=== PATIENT | male | born 1940 | race Caucasian/White ===

== ENCOUNTER → 2016-08-13 | Outpatient (CLI) | payer MEDICARE, OTHER ==
[2016-08-13 10:12] LABS: ABSOLUTE BASOPHILS # (AUTO) 0.1 10^3/uL (0.0-0.2); ABSOLUTE EOSINOPHILS # (AUTO) 0.2 10^3/uL (0.0-0.6); ABSOLUTE LYMPHOCYTES (AUTO) 0.9 10^3/uL (0.5-4.7); ABSOLUTE MONOCYTES (AUTO) 0.5 10^3/uL (0.1-1.4); ABSOLUTE NEUT (AUTO) 5.7 10^3/uL (1.7-8.2); BASOPHILS % (AUTO) 0.9 % (0-2); EOSINOPHILS % (AUTO) 3.3 % (0-6); HEMATOCRIT 34.3 % (37.9-51.0); HEMOGLOBIN 11.6 g/dL (13.5-17.0); HGB HCT DIFFERENCE 0.5; LYMPHOCYTES % (AUTO) 12.4 % (13-45); MEAN CORPUSCULAR HEMOGLOBIN 31.5 pg (27.0-33.4); MEAN CORPUSCULAR HGB CONC 33.9 g/dL (32.0-36.0); MEAN CORPUSCULAR VOLUME 93 fl (80-97); MONOCYTES % (AUTO) 6.5 % (3-13); RED BLOOD COUNT 3.69 10^6/uL (4.35-5.55); RED CELL DISTRIBUTION WIDTH 13.8 % (11.5-14.0); SEGMENTED NEUTROPHILS % (AUTO) 76.9 % (42-78); WHITE BLOOD COUNT 7.4 10^3/uL (4.0-10.5)
[2016-08-13 10:41] LABS: ALANINE AMINOTRANSFERASE 92 U/L (21-72); ALBUMIN 3.7 g/dL (3.5-5.0); ALKALINE PHOSPHATASE 263 U/L (38-126); ANION GAP 11 (5-19); ASPARTATE AMINO TRANSFERASE 56 U/L (17-59); BILIRUBIN,DIRECT 0.4 mg/dL (0.0-0.4); BILIRUBIN,TOTAL 0.7 mg/dL (0.2-1.3); BLOOD UREA NITROGEN 14 mg/dL (7-20); CALCIUM 9.1 mg/dL (8.4-10.2); CARBON DIOXIDE 26 mmol/L (22-30); CHLORIDE 103 mmol/L (98-107); CHOLESTEROL 112.83 mg/dL (0-200); CREATININE RESULT 0.71 mg/dL (0.52-1.25); Direct HDL 67 mg/dL (>40); GLUCOSE 120 mg/dL (75-110); POTASSIUM 4.8 mmol/L (3.6-5.0); SODIUM 139.6 mmol/L (137-145); TOTAL PROTEIN 6.5 g/dL (6.3-8.2); TRIGLYCERIDES 90 mg/dL (<150)
[2016-08-13 11:12] LABS: DIRECT LDL < 30 mg/dL (<100)
== END ==
LOC: OD 08:58
PROVIDERS: ATTEND Internal Medicine
DX: I10 Essential (primary) hypertension (principal); E11.9 Type 2 diabetes mellitus without complications; E78.00 Pure hypercholesterolemia, unspecified; Z79.899 Other long term (current) drug therapy; Z12.5 Encounter for screening for malignant neoplasm of prostate
CPT/HCPCS: 36415; 85025; 80053; 80061; G0103

== ENCOUNTER → 2016-08-20 | Outpatient (CLI) | payer MEDICARE, OTHER ==
[2016-08-20 12:17] LABS: IRON 35.3 ug/dL (49-181)
[2016-08-20 13:19] LABS: FOLATE 9.15 ng/mL (>2.76)
[2016-08-21 06:39] LABS: HEPATITIS C VIRUS AB <0.1 s/co ratio (0.0-0.9)
== END ==
LOC: OD 10:41
PROVIDERS: ATTEND Internal Medicine
DX: D51.0 Vitamin B12 deficiency anemia due to intrinsic factor deficiency (principal); R74.8 Abnormal levels of other serum enzymes
CPT/HCPCS: 36415; 82607; 82728; 82746; 83540; 86803; 86804

== ENCOUNTER → 2016-09-05 | Outpatient (CLI) | payer MEDICARE, OTHER ==
--- NOTE | 2016-09-05 09:32 | RADIOLOGY REPORT (SQ) ---
EXAM DESCRIPTION: U/S ABDOMEN LIMITED W/O DOP COMPLETED DATE/TIME: 09/05/2016 8:26 am REASON FOR STUDY: ABN LEVELS OF OTHER SERUM ENZYMES R74.8 ABNORMAL LEVELS OF OTHER SERUM ENZYMES COMPARISON: CT abdomen pelvis 01/10/2014 TECHNIQUE: Dynamic and static grayscale images acquired of the abdomen and recorded on PACS. Additio nal selected color Doppler and spectral images recorded. LIMITATIONS: Obese patient, midline bowel gas. FINDINGS: PANCREAS: Not well seen LIVER: Coarse echotexture, question diffuse hepatocellular disease. No focal masses. LIVER VASCULATURE: Normal directional flow of the main portal vein and hepatic veins. GALLBLADDER: No stones. Normal wall thickness. No pericholecystic fluid. ULTRASOUND-DETECTED GARCIA'S SIGN: Negative. INTRAHEPATIC DUCTS AND COMMON DUCT: CBD and intrahepatic ducts normal caliber. No filling defects. INFERIOR VENA CAVA: Not well seen AORTA: Not well seen RIGHT KIDNEY: Diffuse cortical thinning, mild increased cortical echogenicity. No stones, masses, c ysts, or hydronephrosis PERITONEAL AND RIGHT PLEURAL SPACE: No ascites or effusions. OTHER: No other significant findings. 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 No gallstones TECHNICAL DOCUMENTATION: JOB ID: [id number] [employer]- All Rights Reserved
== END ==
LOC: RAD 07:37
PROVIDERS: ATTEND Internal Medicine
DX: R74.8 Abnormal levels of other serum enzymes (principal)
CPT/HCPCS: 76705

== ENCOUNTER → 2017-04-06 | Outpatient (CLI) | payer MEDICARE, OTHER ==
[2017-04-06 08:19] LABS: ABSOLUTE EOSINOPHILS # (AUTO) 0.2 10^3/uL (0.0-0.6); ABSOLUTE LYMPHOCYTES (AUTO) 1.4 10^3/uL (0.5-4.7); ABSOLUTE MONOCYTES (AUTO) 0.5 10^3/uL (0.1-1.4); BASOPHILS % (AUTO) 0.6 % (0-2); EOSINOPHILS % (AUTO) 2.2 % (0-6); HEMATOCRIT 37.2 % (37.9-51.0); HEMOGLOBIN 12.4 g/dL (13.5-17.0); LYMPHOCYTES % (AUTO) 19.3 % (13-45); MEAN CORPUSCULAR HEMOGLOBIN 30.9 pg (27.0-33.4); MEAN CORPUSCULAR HGB CONC 33.2 g/dL (32.0-36.0); MEAN CORPUSCULAR VOLUME 93 fl (80-97); MONOCYTES % (AUTO) 7.3 % (3-13); PLATELET COUNT 213 10^3/uL (150-450); RED CELL DISTRIBUTION WIDTH 13.5 % (11.5-14.0); SEGMENTED NEUTROPHILS % (AUTO) 70.6 % (42-78); TOTAL CELLS COUNTED % (AUTO) 100 %; WHITE BLOOD COUNT 7.1 10^3/uL (4.0-10.5)
[2017-04-06 08:48] LABS: ALANINE AMINOTRANSFERASE 42 U/L (21-72); ALKALINE PHOSPHATASE 80 U/L (38-126); ANION GAP 10 (5-19); ASPARTATE AMINO TRANSFERASE 28 U/L (17-59); BILIRUBIN,DIRECT 0.3 mg/dL (0.0-0.4); BILIRUBIN,TOTAL 0.4 mg/dL (0.2-1.3); BLOOD UREA NITROGEN 25 mg/dL (7-20); CALCIUM 9.3 mg/dL (8.4-10.2); CARBON DIOXIDE 27 mmol/L (22-30); CHLORIDE 107 mmol/L (98-107); CHOLESTEROL 99.37 mg/dL (0-200); GLUCOSE 80 mg/dL (75-110); SODIUM 143.6 mmol/L (137-145); TOTAL PROTEIN 6.4 g/dL (6.3-8.2); TRIGLYCERIDES 88 mg/dL (<150)
[2017-04-06 09:03] LABS: DIRECT LDL < 30 mg/dL (<100)
== END ==
LOC: OD 07:36
PROVIDERS: ATTEND Internal Medicine
DX: I10 Essential (primary) hypertension (principal); Z12.5 Encounter for screening for malignant neoplasm of prostate; E11.9 Type 2 diabetes mellitus without complications; E78.00 Pure hypercholesterolemia, unspecified; Z79.899 Other long term (current) drug therapy
CPT/HCPCS: 36415; 85025; 80053; 80061; G0103

== ENCOUNTER → 2018-06-10 | Outpatient (CLI) | payer MEDICARE, OTHER ==
[2018-06-10 09:34] LABS: ABSOLUTE EOSINOPHILS # (AUTO) 0.1 10^3/uL (0.0-0.6); ABSOLUTE LYMPHOCYTES (AUTO) 1.2 10^3/uL (0.5-4.7); ABSOLUTE MONOCYTES (AUTO) 0.4 10^3/uL (0.1-1.4); ABSOLUTE NEUT (AUTO) 3.9 10^3/uL (1.7-8.2); BASOPHILS % (AUTO) 0.7 % (0-2); EOSINOPHILS % (AUTO) 2.6 % (0-6); HEMATOCRIT 39.1 % (37.9-51.0); HEMOGLOBIN 13.2 g/dL (13.5-17.0); LYMPHOCYTES % (AUTO) 20.6 % (13-45); MEAN CORPUSCULAR HEMOGLOBIN 30.8 pg (27.0-33.4); MEAN CORPUSCULAR HGB CONC 33.8 g/dL (32.0-36.0); MEAN CORPUSCULAR VOLUME 91 fl (80-97); MONOCYTES % (AUTO) 7.7 % (3-13); PLATELET COUNT 193 10^3/uL (150-450); RED BLOOD COUNT 4.29 10^6/uL (4.35-5.55); RED CELL DISTRIBUTION WIDTH 13.1 % (11.5-14.0); SEGMENTED NEUTROPHILS % (AUTO) 68.4 % (42-78); TOTAL CELLS COUNTED % (AUTO) 100 %; WHITE BLOOD COUNT 5.7 10^3/uL (4.0-10.5)
[2018-06-10 10:00] LABS: ALANINE AMINOTRANSFERASE 32 U/L (21-72); ALBUMIN 3.8 g/dL (3.5-5.0); ALKALINE PHOSPHATASE 102 U/L (38-126); ANION GAP 8 (5-19); ASPARTATE AMINO TRANSFERASE 27 U/L (17-59); BILIRUBIN,DIRECT 0.3 mg/dL (0.0-0.4); BILIRUBIN,TOTAL 0.6 mg/dL (0.2-1.3); BLOOD UREA NITROGEN 31 mg/dL (7-20); CALCIUM 9.5 mg/dL (8.4-10.2); CARBON DIOXIDE 30 mmol/L (22-30); CHLORIDE 101 mmol/L (98-107); CHOLESTEROL 101.94 mg/dL (0-200); GLUCOSE 90 mg/dL (75-110); POTASSIUM 4.8 mmol/L (3.6-5.0); SODIUM 138.6 mmol/L (137-145); TOTAL PROTEIN 6.6 g/dL (6.3-8.2); TRIGLYCERIDES 74 mg/dL (<150)
[2018-06-10 10:11] LABS: DIRECT LDL 34 mg/dL (<100)
== END ==
LOC: OD 08:35
PROVIDERS: ATTEND Internal Medicine
DX: E11.9 Type 2 diabetes mellitus without complications (principal); N40.1 Benign prostatic hyperplasia with lower urinary tract symptoms; J45.40 Moderate persistent asthma, uncomplicated; E78.00 Pure hypercholesterolemia, unspecified; Z79.899 Other long term (current) drug therapy
CPT/HCPCS: 36415; 80053; 80061; 83036; 84153; 85025

== ENCOUNTER 2019-07-21 15:14 | Inpatient (IN) | payer MEDICARE, OTHER ==
[~2019-07-21 15:14] MED LIST: ETOMIDATE INJ/PF 20 MG/10 ML SDV IV ONE; SUCCINYLCHOLINE CHLORIDE INJ 200 MG/10 ML VIAL ONE
[2019-07-21] MEDS ORDERED: IPRATROPIUM/ALBUTEROL 0.5-2.5 MG/3 ML AMPUL NEB ONE (15:27)
[2019-07-21 15:41] LABS: ABSOLUTE LYMPHOCYTES (AUTO) 0.6 10^3/uL (0.5-4.7); ABSOLUTE MONOCYTES (AUTO) 0.4 10^3/uL (0.1-1.4); ABSOLUTE NEUT (AUTO) 5.8 10^3/uL (1.7-8.2); BASOPHILS % (AUTO) 0.4 % (0-2); EOSINOPHILS % (AUTO) 0.4 % (0-6); HEMOGLOBIN 12.2 g/dL (13.5-17.0); LYMPHOCYTES % (AUTO) 8.4 % (13-45); MEAN CORPUSCULAR HEMOGLOBIN 31.8 pg (27.0-33.4); MEAN CORPUSCULAR VOLUME 99 fl (80-97); MONOCYTES % (AUTO) 6.1 % (3-13); PLATELET COUNT 177 10^3/uL (150-450); RED BLOOD COUNT 3.82 10^6/uL (4.35-5.55); RED CELL DISTRIBUTION WIDTH 14.2 % (11.5-14.0); SEGMENTED NEUTROPHILS % (AUTO) 84.7 % (42-78); TOTAL CELLS COUNTED % (AUTO) 100 %; WHITE BLOOD COUNT 6.8 10^3/uL (4.0-10.5)
[2019-07-21 15:42] LABS: ARTERIAL BLOOD BASE EXCESS -3.8 mmol/L; ARTERIAL BLOOD H2CO3 3.69 mmol/L (1.05-1.35); ARTERIAL BLOOD HCO3 30.1 mmol/L (20-24); ARTERIAL BLOOD PO2 139.6 mmHg (80-100); ARTERIAL BLOOD TOTAL CO2 33.8 mmol/L (23-27)
[2019-07-21 15:45] LABS: PROTHROMBIN TIME 13.2 SEC (11.4-15.4)
[2019-07-21 15:46] LABS: PARTIAL THROMBOPLASTIN TIME 31.1 SEC (23.5-35.8)
[2019-07-21 15:46] LABS: ARTERIAL BLOOD FIO2 15L
[2019-07-21 15:49] LABS: ARTERIAL BLOOD PCO2 122.7 mmHg (35-45); ARTERIAL BLOOD PH 7.01 (7.35-7.45)
--- NOTE | 2019-07-21 15:54 | RADIOLOGY REPORT (SQ) ---
EXAM DESCRIPTION: CT HEAD WITHOUT IMAGES COMPLETED DATE/TIME: 07/21/2019 3:41 pm REASON FOR STUDY: bed 9 altered mental status r/o stroke COMPARISON: None. TECHNIQUE: Axial images acquired through the brain without intravenous contrast. Images reviewed wi th bone, brain and subdural windows. Additional sagittal and coronal reconstructions were generated. Images stored on PACS. All CT scanners at this facility use dose modulation, iterative reconstruction, and/or weight based d osing when appropriate to reduce radiation dose to as low as reasonably achievable (ALARA). [facility]: Dose Right [facility]: CareDose [facility]: Dose Right [facility]: Teradose 4D [facility]: NetDevices RADIATION DOSE: CT Rad equipment meets quality standard of care and radiation dose reduction techniq ues were employed. CTDIvol: 53.2 mGy. DLP: 1097 mGy-cm.mGy. LIMITATIONS: None. FINDINGS: VENTRICLES: Prominent. CEREBRUM: No masses. No hemorrhage. No midline shift. Areas of low density in the white matter mos t likely due to chronic micro-vascular ischemic change. No evidence for acute infarction. CEREBELLUM: No masses. No hemorrhage. No alteration of density. No evidence for acute infarction. EXTRAAXIAL SPACES: Age-related involutional change. No fluid collections. No masses. ORBITS AND GLOBE: No intra- or extraconal masses. Normal contour of globe without masses. CALVARIUM: No fracture. PARANASAL SINUSES: No fluid or mucosal thickening. SOFT TISSUES: No mass or hematoma. OTHER: No other significant finding. IMPRESSION: CHRONIC CHANGES OF ATROPHY AND MICROVASCULAR ISCHEMIA. NO ACUTE PROCESS. EVIDENCE OF ACUTE STROKE: NO. COMMENT: Pertinent positive or negative findings of the imaging study reported as a CRITICAL EXAM t o SHARRI POWERS DO at15:48 on 07/21/2019. Category of Critical Exam: Stroke alert TECHNICAL DOCUMENTATION: JOB ID: [id number] Quality ID # [id number]: Final reports with documentation of one or more dose reduction techniques (e.g., Au tomated exposure control, adjustment of the mA and/or kV according to patient size, use of iterative reconstruction technique) 2010 [employer]- All Rights Reserved Reading location - IP/workstation name: [email or web address]-
--- NOTE | 2019-07-21 15:55 | RADIOLOGY REPORT (SQ) ---
EXAM DESCRIPTION: CHEST SINGLE VIEW IMAGES COMPLETED DATE/TIME: 07/21/2019 3:43 pm REASON FOR STUDY: bed 9 altered mental status r/o stroke COMPARISON: None. NUMBER OF VIEWS: One view. TECHNIQUE: Single frontal radiographic view of the chest acquired. LIMITATIONS: Poor inspiratory effort. FINDINGS: LUNGS AND PLEURA: Hypoventilatory changes. No obvious pneumonia. MEDIASTINUM AND HILAR STRUCTURES: Appropriate for technique. HEART AND VASCULAR STRUCTURES: Heart enlarged without failure. Normal vasculature. BONES: No acute findings. HARDWARE: None in the chest. OTHER: No other significant finding. IMPRESSION: Hypoventilatory changes. TECHNICAL DOCUMENTATION: JOB ID: [id number] 2010 [employer]- All Rights Reserved Reading location - IP/workstation name: [email or web address]
[2019-07-21 15:59] LABS: ALBUMIN 3.8 g/dL (3.5-5.0); ALKALINE PHOSPHATASE 99 U/L (38-126); ANION GAP 7 (5-19); ASPARTATE AMINO TRANSFERASE 17 U/L (17-59); BILIRUBIN,TOTAL 0.2 mg/dL (0.2-1.3); BLOOD UREA NITROGEN 72 mg/dL (7-20); CALCIUM 7.8 mg/dL (8.4-10.2); CARBON DIOXIDE 27 mmol/L (22-30); CHLORIDE 104 mmol/L (98-107); CREATINE KINASE 94 U/L (55-170); GLUCOSE 226 mg/dL (75-110); TOTAL PROTEIN 6.4 g/dL (6.3-8.2)
[2019-07-21 16:02] LABS: POTASSIUM 6.5 mmol/L (3.6-5.0)
[2019-07-21 16:11] LABS: CREATINE KINASE MB 3.86 ng/mL (<4.55); TROPONIN I 0.02 ng/mL
[2019-07-21 17:14] LABS: APPEARANCE,URINE SLIGHTLY-CLOUDY; BILIRUBIN,URINE NEGATIVE (NEGATIVE); COLOR,URINE YELLOW; GLUCOSE, URINE NEGATIVE (NEGATIVE); KETONES,URINE NEGATIVE (NEGATIVE); LEUKOCYTE ESTERASE,URINE NEGATIVE (NEGATIVE); NITRITE,URINE NEGATIVE (NEGATIVE); PROTEIN,URINE 30 mg/dL (NEGATIVE); URINE SPECIFIC GRAVITY 1.016; UROBILINOGEN,URINE NEGATIVE mg/dL (<2.0)
[2019-07-21] MEDS ORDERED: NORMAL SALINE 1000 ML 1,000 ML IV ONE (17:18)
[2019-07-21] MEDS ORDERED: NOREPINEPHRINE BITARTRATE INJ/PF 4 MG/4 ML SDV IV ONE (17:30)
[2019-07-21 17:34] LABS: URINE MARIJUANA (THC) SCREEN NEGATIVE; URINE PHENCYCLIDINE SCREEN NEGATIVE
[2019-07-21 17:35] LABS: URINE COCAINE SCREEN NEGATIVE
[2019-07-21 17:39] LABS: URINE AMPHETAMINES SCREEN NEGATIVE; URINE BARBITURATES SCREEN NEGATIVE; URINE BENZODIAZEPINES SCREEN NEGATIVE; URINE METHADONE SCREEN NEGATIVE
[2019-07-21] MEDS: PROPOFOL 1,000 MG/100 ML INFUS..BTL IV PRN ×2 (17:58→22:50)
[2019-07-21] MEDS ORDERED: CALCIUM GLUCONATE 1000 MG/10 ML INJ IV ONE (18:45)
[2019-07-21] MEDS ORDERED: DEXTROSE 5%-WATER 250 ML with NOREPINEPHRINE BITARTRATE 4 MG IV PRN ×2 (18:45)
[2019-07-21] MEDS ORDERED: SODIUM BICARBONATE 8.4% INJ 50 MEQ/50 ML DISP.SYRIN IV ONE (18:45)
[2019-07-21] MEDS ORDERED: INSULIN REG, HUMAN 100 UNIT/ML 3 ML VIAL (PYX) IV ONE (18:48)
[2019-07-21 18:57] LABS: ARTERIAL BLOOD BASE EXCESS -5.6 mmol/L; ARTERIAL BLOOD H2CO3 2.69 mmol/L (1.05-1.35); ARTERIAL BLOOD HCO3 26.1 mmol/L (20-24); ARTERIAL BLOOD O2 SATURATION 83.9 % (94-98); ARTERIAL BLOOD PO2 67.1 mmHg (80-100); ARTERIAL BLOOD TOTAL CO2 28.9 mmol/L (23-27)
[2019-07-21 18:59] LABS: ARTERIAL BLOOD FIO2 60%
[2019-07-21 19:00] LABS: ARTERIAL BLOOD PCO2 89.5 mmHg (35-45); ARTERIAL BLOOD PH 7.08 (7.35-7.45)
[2019-07-21] MEDS ORDERED: ETOMIDATE INJ/PF 20 MG/10 ML SDV IV ONE ×2 (19:02)
[2019-07-21] MEDS ORDERED: SUCCINYLCHOLINE CHLORIDE INJ 200 MG/10 ML VIAL IV ONE (19:02)
--- NOTE | 2019-07-21 19:09 | ER Document Report ---
ED General - General Chief Complaint: Blood Pressure Problem Stated Complaint: BLOOD PRESSURE ISSUES Primary Care Provider: JORGE ZAVALA MD [Primary Care Provider] - Follow up as needed Mode of Arrival: Medic Information source: Patient, Emergency Med Personnel Cannot obtain history due to: Altered mental status Notes: Patient is an 79-year-old gentleman presenting to the emergency department chief complaint of respiratory failure and altered mental status. Patient is brought into the emergency department by EMS they state that the patient was unresponsive at the house and was breathing very shallowly. At time of presentation patient is minimally responsive does answer to noxious stimuli is able to tell me his name and age. Patient is quite somnolent. Patient feels cold to the touch. Remainder of history of present illness and review of systems is unobtainable secondary to patient condition. TRAVEL OUTSIDE OF THE [place] IN LAST 30 DAYS: No - HPI Onset: Just prior to arrival Onset/Duration: Sudden, Worse Quality of pain: No pain Severity: Severe Associated symptoms: Shortness of breath Exacerbated by: Denies Relieved by: Denies Similar symptoms previously: No Recently seen / treated by doctor: No - Related Data Allergies/Adverse Reactions: No Known Allergies Allergy (Verified 07/21/19 16:00) Past Medical History - General Information source: Patient, Relative, Emergency Med Personnel, [facility] Records Cannot obtain history due to: Altered mental status - Social History Smoking Status: Unknown if Ever Smoked Frequency of alcohol use: None Drug Abuse: None Lives with: Spouse/Significant other Family History: Other - Unobtainable Patient has suicidal ideation: No Patient has homicidal ideation: No - Past Medical History Cardiac Medical History: Reports: Hx Heart Attack Pulmonary Medical History: Reports: Hx COPD Endocrine Medical History: Reports: Hx Diabetes Mellitus Type 2 Review of Systems - Review of Systems -: Yes ROS unobtainable due to patient's medical condition Physical Exam - Vital signs Vitals: Temp 96.4 F L 07/21/19 15:15 - Notes Notes: PHYSICAL EXAMINATION: GENERAL: Patient is an 79-year-old male presenting to the emergency department in obvious respiratory distress with altered mental status HEAD: Atraumatic, normocephalic. EYES: Pupils equal round approximately 2 mm sluggishly reactive conjunctiva are moderately injected ENT: nares patent, oropharynx clear without exudates. Tacky mucous membranes. NECK: Normal range of motion, supple without lymphadenopathy, no appreciable JVD LUNGS: Lungs demonstrate poor inspiratory expiratory effort no obvious wheezes rales or rhonchi HEART: Regular rate and rhythm without murmurs ABDOMEN: Soft, moderately obese decreased bowel sounds. EXTREMITIES: Active full range of motion, no pitting minimal edema. No cyanosis. 2+ pulses x4 NEUROLOGICAL: Patient responds to noxious stimuli answers questions intermittently appropriately Radha Coma Scale of 11. SKIN: Warm, Dry, cool to the touch pallorous Course - Re-evaluation Re-evalutation: 07/21/19 20:21 At time of presentation patient was minimally responsive to noxious stimuli and when he woke up he was able to answer questions as to age and name. Patient was immediately sent to CAT scan to rule out a stroke shortly after returning to the emergency department proper I was notified by nursing staff that the patient was decompensating. On evaluation the patient did not respond to noxious stimuli. Sternal rub elicited no motor or verbal responses. At that time decision was made to electively intubate the patient because of the need for airway protec tion. Personnel were assembled to the room to include respiratory therapy nursing staff and nurses aides. Patient was given 20 mg of etomidate and 100 mg of succinylcholine and intubated with a 7.5 endotracheal tube, cuffed to 23 cm at the lips. This was accomplished by me with 1 attempt. Tube was secured by respiratory therapy positive lung sounds and colorimetric change were identified. Patient was placed on a ventilator. NG tube and Marie catheter were placed. Portable chest x-ray was obtained showing adequate placement of adjuncts. 07/21/19 20:29 Patient was also identified as having hyperkalemia and respiratory acidosis patient was given 100 mg of sodium bicarbonate 1 amp of calcium gluconate and 10 units of insulin for initial management of hyper kalemia. As well as the respi ratory acidosis. Patient was maintained on traffic monitor specialist and ventilator. Patient was consulted to the mastic floor layer for further evaluation and management. Repeat chest x-ray demonstrates possible right lower lobe pneumonia. Attempts have been made to contact the mastic floor layer however since I have not received a call back patient will be initiated on Rocephin and a azithromycin for presumed pneumonia. - Vital Signs Vital signs: Temp Pulse Resp BP Pulse Ox 95.7 F L 63 22 H 138/65 H 97 07/21/19 16:21 07/21/19 15:16 07/21/19 19:46 07/21/19 19:46 07/21/19 19:46 - Laboratory Result Diagrams: 07/21/19 15:23 07/21/19 15:23 Laboratory results interpreted by me: 07/21/19 07/21/19 07/21/19 15:23 15:23 15:23 RBC 3.82 L Hgb 12.2 L MCV 99 H RDW 14.2 H Lymph % (Auto) 8.4 L Seg Neutrophils % 84.7 H Carbonic Acid ABG pH ABG pCO2 ABG pO2 ABG HCO3 ABG Total CO2 ABG O2 Saturation Potassium 6.5 H* BUN 72 H Creatinine 2.72 H Est GFR ( Amer) 27 L Est GFR (MDRD) Non-Af 23 L Glucose 226 H POC Glucose Calcium 7.8 L NT-Pro-B Natriuret Pep 1890 H Urine Protein 07/21/19 07/21/19 07/21/19 15:23 15:55 15:56 RBC Hgb MCV RDW Lymph % (Auto) Seg Neutrophils % Carbonic Acid 3.69 H ABG pH 7.01 L* ABG pCO2 122.7 H* ABG pO2 139.6 H ABG HCO3 30.1 H ABG Total CO2 33.8 H ABG O2 Saturation Potassium BUN Creatinine Est GFR ( Amer) Est GFR (MDRD) Non-Af Glucose POC Glucose 192 H Calcium NT-Pro-B Natriuret Pep Urine Protein 30 H 07/21/19 18:20 RBC Hgb MCV RDW Lymph % (Auto) Seg Neutrophils % Carbonic Acid 2.69 H ABG pH 7.08 L* ABG pCO2 89.5 H* ABG pO2 67.1 L ABG HCO3 26.1 H ABG Total CO2 28.9 H ABG O2 Saturation 83.9 L Potassium BUN Creatinine Est GFR ( Amer) Est GFR (MDRD) Non-Af Glucose POC Glucose Calcium NT-Pro-B Natriuret Pep Urine Protein - Diagnostic Test Radiology reviewed: Reports reviewed - EKG Interpretation by Me EKG shows normal: Sinus rhythm Rate: Normal Rhythm: NSR Heart block present: 1st Degree When compared to previous EKG there are: No significant change Procedures - Intubation Orotracheal Airway evaluation: Normal anatomy Mallampati Classification: Class 2 Medications: Etomidate, Succinylcholine Intubation method: Orotracheal Blade type: Jaziel Blade size: 4 ETT size: 7.5 ETT secured at: Lips ETT secured at (cm): 23 Breath Sounds after Intubation: Equal End tidal CO2 confirmed: Yes Post Intubation Xray: Yes Intubation Complications: No complications Critical Care Note - Critical Care Note Total time excluding time spent on procedures (mins): 40 Comments: Please allow 40 minutes of critical care time spent obtaining history from patient or surrogate, discussions with consultants, development of treatment plan with patient or surrogate, evaluation of patient's response to treatment, examination of patient. This also includes ordering and reviewing laboratory, EKG and / or radiologic studies, performing and reassessing treatments and interventions as well as reviewing previous visits and old charts. This is exclusive of separately billable procedures. Discharge - Discharge Clinical Impression: Hyperkalemia Respiratory failure Qualifiers: Chronicity: acute Respiratory failure complication: hypoxia and hypercapnia Qualified Code(s): J96.01 - Acute respiratory failure with hypoxia; J96.02 - Acute respiratory failure with hypercapnia Altered mental status Qualifiers: Altered mental status type: coma Coma depth: [place] coma 3-8 Coma timing: in the field (EMT or ambulance) Qualified Code(s): R40.2431 - Radha coma scale score 3-8, in the field [EMT or ambulance] Pneumonia Qualifiers: Pneumonia type: due to unspecified organism Laterality: right Lung location: lower lobe of lung Qualified Code(s): J18.9 - Pneumonia, unspecified organism Condition: Poor Disposition: ADMITTED INPATIENT Admitting Provider: Kleber ([facility]ian Keeper) Unit Admitted: ICU Referrals: JORGE ZAVALA MD [Primary Care Provider] - Follow up as needed
[2019-07-21] MEDS ORDERED: NORMAL SALINE 1000 ML 1,000 ML IV PRN (19:11)
--- NOTE | 2019-07-21 20:02 | RADIOLOGY REPORT (SQ) ---
EXAM DESCRIPTION: XR CHEST 1 VIEW COMPLETED DATE/TME: 07/21/2019 00:00 CLINICAL HISTORY: 79 years, Male, intubation COMPARISON: None. NUMBER OF VIEWS: TECHNIQUE: LIMITATIONS: None. FINDINGS: There is possible infiltrate in the right lower lobe, raising the possibility of pneumonia. There is cardiomegaly. There is possible mild pulmonary vascular congestion. The tip of the endotracheal tube is in satisfactory position at the level of the clavicles. The tip of the nasogastric tube is in the gastric antrum. IMPRESSION: Possible right lower lobe pneumonia. Cardiomegaly with possible mild pulmonary vascular congestion. The ET and NG tubes are in satisfactory position. copyright 2010 [employer]- All Rights Reserved
--- NOTE | 2019-07-21 20:35 | CRITICAL CARE ADMISSION REPORT ---
HPI Date:: 07/21/19 Time:: 20:11 Reason for ICU Reason:: acute hypercapnic respiratory failure HPI: This 79-year-old male presented to [facility] emergency department with altered mental status. According to discussion with ER staff, he also reported dyspnea. On evaluation, he was found to be hypothermic and hypotensive. He was apparently supported with BiPAP; however, continued to show deterioration in mental status (to a GCS score of 4), and ABG showed a pH of 7.0, PCO2 123, PO2 140, prompting endotracheal intubation. At the time of cl inical interview, the patient is intubated and requiring sedation with propofol. Clinical history is obtained from discussion with the ER staff. History obtained from:: Review of records, discussion with ER staff - Diagnosis/Plan (1) Acute hypercapnic respiratory failure Is this a current diagnosis for this admission?: Yes Plan: Titrate vent settings based on ABG results. Albuterol PRN. (2) COPD exacerbation Is this a current diagnosis for this admission?: Yes Plan: Solu-Medrol 60 mg IV every 6 hours. DuoNeb scheduled. Albuterol as needed. Trach aspirate for Gram stain, C/S. Rocephin/Zithromax. (3) Hiatal hernia Is this a current diagnosis for this admission?: Yes Plan: Chest x-ray findings raise the possibility that significant aerophagia resulted in exacerbation of the patient's hypercapnic respiratory failure. OG tube placement and low intermittent suction. (4) Acute kidney injury Is this a current diagnosis for this admission?: Yes Plan: IV fluid resuscitation. Avoid nephrotoxic drugs. Renal dosing of medications. (5) Hyperkalemia Is this a current diagnosis for this admission?: Yes Plan: Rising maneuvers for hyperkalemia have already been initiated in the emergency department. Repeat BMP. (6) Macrocytic anemia Is this a current diagnosis for this admission?: Yes Plan: Monitor hemoglobin (7) COVID-19 ruled out Is this a current diagnosis for this admission?: Yes Past Medical History Pulmonary Medical History: Reports: Chronic Obstructive Pulmonary Disease (COPD) Social/Family History - Social History Smoking Status: Unknown if Ever Smoked - Medication/Allergies Home Medications: Albuterol Sulfate [Albuterol Sulfate Hfa] 2 puff IH Q8HP PRN 07/21/19 Aspirin [Ecotrin 81 mg EC Tablet] 81 mg PO DAILY 07/21/19 Atorvastatin Calcium [Lipitor 80 mg Tablet] 80 mg PO QHS 07/21/19 Diphenhydramine HCl [Benadryl 50 mg Capsule] 50 mg PO BID 07/21/19 Doxazosin Mesylate [Cardura 4 mg Tablet] 4 mg PO DAILY 07/21/19 Finasteride [Proscar 5 mg Tablet] 5 mg PO DAILY 07/21/19 Fluticasone/Salmeterol [Advair 250-50 Diskus 14 Dose/Diskus] 1 puff IH BID 07/21/19 Furosemide [Lasix 40 mg Tablet] 40 mg PO DAILY 07/21/19 Gabapentin 600 mg PO BID 07/21/19 Glipizide [Glipizide Xl] 10 mg PO BID 07/21/19 Ibuprofen [Motrin 800 mg Tablet] 800 mg PO BID 07/21/19 Insulin Glargine,Hum.rec.anlog [Lantus Insulin 100 Unit/mL Insulin Pen] 50 unit SUBCUT QAM 07/21/19 Lisinopril [Prinivil 10 mg Tablet] 10 mg PO DAILY 07/21/19 Metoprolol Succinate [Toprol Xl 50 mg Tab.sr] 50 mg PO DAILY 07/21/19 Sitagliptin Phos/Metformin HCl [Janumet Xr 50-1,000 mg Tablet] 1 tab PO BID 07/21/19 Allergies/Adverse Reactions: No Known Allergies Allergy (Verified 07/21/19 16:00) Review of Systems ROS unobtainable: Due to endotracheal tube, Due to mental status Physical Exam Vital Signs: Temp Pulse Resp BP Pulse Ox 95.7 F L 63 22 H 138/65 H 97 07/21/19 16:21 07/21/19 15:16 07/21/19 19:46 07/21/19 19:46 07/21/19 19:46 Intake & Output 07/20/19 07/21/19 07/22/19 06:59 06:59 06:59 Intake Total 1089 Balance 1089 Weight 132.1 kg Weight/Height Weight 132.1 kg Height 1.85 m General appearance: PRESENT: no acute distress, morbidly obese, well-developed Head exam: PRESENT: atraumatic, normocephalic Eye exam: PRESENT: conjunctiva pink, EOMI, PERRLA. ABSENT: scleral icterus Mouth exam: PRESENT: moist, tongue midline Neck exam: ABSENT: carotid bruit, JVD, lymphadenopathy, thyromegaly Respiratory exam: PRESENT: decreased breath sounds, rhonchi. ABSENT: prolonged expiratory phas, rales, wheezes Cardiovascular exam: PRESENT: bradycardia, irregular rhythm Pulses: PRESENT: normal dorsalis pedis pul GI/Abdominal exam: PRESENT: normal bowel sounds, soft, other - Pendulous. Huge pannus.. ABSENT: distended, guarding, mass, organolmegaly, rebound, tenderness Extremities exam: PRESENT: full ROM. ABSENT: calf tenderness, clubbing, pedal edema Skin exam: PRESENT: dry, intact, warm. ABSENT: cyanosis, rash Tubes/Lines: PRESENT: Endotracheal Tube Laboratory/Radiographs Laboratory Results: 07/21/19 15:23 07/21/19 15:23 07/21/19 07/21/19 07/21/19 15:23 15:23 15:23 WBC 6.8 RBC 3.82 L Hgb 12.2 L Hct 38.0 MCV 99 H MCH 31.8 MCHC 32.0 RDW 14.2 H Plt Count 177 Seg Neutrophils % 84.7 H Carbonic Acid HCO3/H2CO3 Ratio ABG pH ABG pCO2 ABG pO2 ABG HCO3 ABG O2 Saturation ABG Base Excess FiO2 Sodium 138.0 Potassium 6.5 H* Chloride 104 Carbon Dioxide 27 Anion Gap 7 BUN 72 H Creatinine 2.72 H Est GFR ( Amer) 27 L Glucose 226 H Lactic Acid 2.1 Calcium 7.8 L Total Bilirubin 0.2 AST 17 Alkaline Phosphatase 99 Total Protein 6.4 Albumin 3.8 Urine Color Urine Appearance Urine pH Ur Specific [place] Urine Protein Urine Glucose (UA) Urine Ketones Urine Blood Urine Nitrite Ur Leukocyte Esterase Urine WBC (Auto) Urine RBC (Auto) 07/21/19 07/21/19 07/21/19 15:23 15:55 18:20 WBC RBC Hgb Hct MCV MCH MCHC RDW Plt Count Seg Neutrophils % Carbonic Acid 3.69 H 2.69 H HCO3/H2CO3 Ratio 8:1 9:1 ABG pH 7.01 L* 7.08 L* ABG pCO2 122.7 H* 89.5 H* ABG pO2 139.6 H 67.1 L ABG HCO3 30.1 H 26.1 H ABG O2 Saturation 97.0 83.9 L ABG Base Excess -3.8 -5.6 FiO2 15L 60% Sodium Potassium Chloride Carbon Dioxide Anion Gap BUN Creatinine Est GFR ( Amer) Glucose Lactic Acid Calcium Total Bilirubin AST Alkaline Phosphatase Total Protein Albumin Urine Color YELLOW Urine Appearance SLIGHTLY-CLOUDY Urine pH 5.0 Ur Specific [place] 1.016 Urine Protein 30 H Urine Glucose (UA) NEGATIVE Urine Ketones NEGATIVE Urine Blood NEGATIVE Urine Nitrite NEGATIVE Ur Leukocyte Esterase NEGATIVE Urine WBC (Auto) 5 Urine RBC (Auto) 1 07/21/19 07/21/19 15:23 15:23 Creatine Kinase 94 CK-MB (CK-2) 3.86 Troponin I 0.020 NT-Pro-B Natriuret Pep 1890 H Impressions: Chest X-Ray 07/21/19 15:16 IMPRESSION: Hypoventilatory changes. Head CT 07/21/19 15:16 IMPRESSION: CHRONIC CHANGES OF ATROPHY AND MICROVASCULAR ISCHEMIA. NO ACUTE PROCESS. EVIDENCE OF ACUTE STROKE: NO. All labs, radiographs, diagnostic studies and EKGs were personally reviewed: Yes In addition, reports of radiographic and diagnostic studies were read: Yes Critical Time Critical Time (minutes): 45 -: The care of a critically ill patient is dynamic. This note represents a static moment in the admission process. Orders and treatments may be given simultane ously and urgently, and time is not surgical device sales representative of the treatment process. This patient requires Critical Care secondary to life threatening organ or limb dysfunction. Without Critical Care services, the patient is at risk for increased mortality and morbidity.
[2019-07-21] MEDS ORDERED: ALBUTEROL SULFATE 0.083% NEB 2.5 MG/3 ML AMPUL NEB PRN (20:50)
--- NOTE | 2019-07-21 21:39 | EKG REPORT ---
SEVERITY:- ABNORMAL ECG - SINUS RHYTHM FIRST DEGREE AV BLOCK INFERIOR INFARCT, AGE INDETERMINATE : Confirmed by: Riley Yanez MD 21-Jul-2019 21:39:01
[2019-07-21 22:08] LABS: ARTERIAL BLOOD BASE EXCESS -3.3 mmol/L; ARTERIAL BLOOD FIO2 80%; ARTERIAL BLOOD HCO3 20.6 mmol/L (20-24); ARTERIAL BLOOD O2 SATURATION 91.3 % (94-98); ARTERIAL BLOOD PCO2 33.3 mmHg (35-45); ARTERIAL BLOOD PH 7.41 (7.35-7.45); ARTERIAL BLOOD PO2 59.3 mmHg (80-100); ARTERIAL BLOOD TOTAL CO2 21.7 mmol/L (23-27)
[2019-07-21] MEDS: METHYLPREDNISOLONE INJ 125 MG/2 ML SDV IV SCH (22:10)
[2019-07-21] MEDS ORDERED: FUROSEMIDE INJ/PF 40 MG/4 ML SDV IV ONE (22:19)
[2019-07-21] MEDS: AZITHROMYCIN 500 MG in DEXTROSE 5%-WATER 250 ML IV SCH (22:30)
[2019-07-22] MEDS: METHYLPREDNISOLONE INJ 125 MG/2 ML SDV IV SCH ×4 (02:01→21:51)
[2019-07-22 03:14] LABS: ALBUMIN 3.7 g/dL (3.5-5.0); ALKALINE PHOSPHATASE 95 U/L (38-126); ANION GAP 9 (5-19); ASPARTATE AMINO TRANSFERASE 30 U/L (17-59); BILIRUBIN,TOTAL 0.3 mg/dL (0.2-1.3); BLOOD UREA NITROGEN 75 mg/dL (7-20); CALCIUM 7.9 mg/dL (8.4-10.2); CARBON DIOXIDE 24 mmol/L (22-30); CHLORIDE 107 mmol/L (98-107); GLUCOSE 140 mg/dL (75-110); POTASSIUM 5.9 mmol/L (3.6-5.0); TOTAL PROTEIN 6.1 g/dL (6.3-8.2)
[2019-07-22 03:48] LABS: HEMATOCRIT 36.8 % (37.9-51.0); HEMOGLOBIN 12.2 g/dL (13.5-17.0); MEAN CORPUSCULAR HEMOGLOBIN 31.6 pg (27.0-33.4); MEAN CORPUSCULAR HGB CONC 33.1 g/dL (32.0-36.0); PLATELET COUNT 165 10^3/uL (150-450); RED BLOOD COUNT 3.85 10^6/uL (4.35-5.55); RED CELL DISTRIBUTION WIDTH 13.8 % (11.5-14.0); WHITE BLOOD COUNT 6.5 10^3/uL (4.0-10.5)
[2019-07-22 04:32] LABS: MEAN CORPUSCULAR VOLUME 96 fl (80-97)
[2019-07-22 04:36] LABS: ABSOLUTE LYMPHOCYTES# (MANUAL) 0.4 10^3/uL (0.5-4.7); BASOPHILS % (MANUAL) 0 % (0-2); EOSINOPHILS % (MANUAL) 0 % (0-6); LYMPHOCYTES % (MANUAL) 3 % (13-45); MONOCYTES % (MANUAL) 0 % (3-13); SEGMENTED NEUTROPHILS % (MAN) 94 % (42-78); TOTAL CELLS COUNTED 100
[2019-07-22 04:37] LABS: OVALOCYTES 1+; PLATELET COMMENT ADEQUATE; TOXIC GRANULATION SLIGHT
[2019-07-22] MEDS: PROPOFOL 1,000 MG/100 ML INFUS..BTL IV PRN ×5 (04:55→21:00)
[2019-07-22] MEDS ORDERED: MIDAZOLAM 2 MG/2 ML INJ IV ONE (06:20)
[2019-07-22] MEDS ORDERED: MIDAZOLAM 2 MG/2 ML INJ ONE (06:21)
[2019-07-22 06:35] LABS: ARTERIAL BLOOD BASE EXCESS -3.1 mmol/L; ARTERIAL BLOOD H2CO3 1.76 mmol/L (1.05-1.35); ARTERIAL BLOOD HCO3 24.9 mmol/L (20-24); ARTERIAL BLOOD O2 SATURATION 92.4 % (94-98); ARTERIAL BLOOD PCO2 58.6 mmHg (35-45); ARTERIAL BLOOD PH 7.25 (7.35-7.45); ARTERIAL BLOOD PO2 74.7 mmHg (80-100); ARTERIAL BLOOD TOTAL CO2 26.7 mmol/L (23-27)
[2019-07-22 06:38] LABS: ARTERIAL BLOOD FIO2 80%
--- NOTE | 2019-07-22 07:03 | RADIOLOGY REPORT (SQ) ---
EXAM DESCRIPTION: XR CHEST 1 VIEW COMPLETED DATE/TME: 07/22/2019 05:00 CLINICAL HISTORY: 79 years Male, acute respiratory failure COMPARISON: One day prior. NUMBER OF VIEWS/TECHNIQUE: 1/AP FINDINGS: impression: Mildly enlarged cardiac silhouette. NSmall streaky and bandlike opacity in the right midlung field. Small left lower lobar-retrocardiac opacity. Interval worsening.
[2019-07-22] MEDS: CEFTRIAXONE 1 GM/D5W RTU 1 GM/50 ML RTUPB IV SCH (09:40)
[2019-07-22 11:09] LABS: ARTERIAL BLOOD BASE EXCESS -1.4 mmol/L; ARTERIAL BLOOD H2CO3 1.52 mmol/L (1.05-1.35); ARTERIAL BLOOD HCO3 25.3 mmol/L (20-24); ARTERIAL BLOOD PCO2 50.6 mmHg (35-45); ARTERIAL BLOOD PH 7.32 (7.35-7.45); ARTERIAL BLOOD PO2 43.6 mmHg (80-100); ARTERIAL BLOOD TOTAL CO2 26.9 mmol/L (23-27)
[2019-07-22 11:11] LABS: ARTERIAL BLOOD FIO2 75%
[2019-07-22] MEDS ORDERED: FUROSEMIDE INJ/PF 40 MG/4 ML SDV ONE (12:31)
[2019-07-22] MEDS ORDERED: FUROSEMIDE INJ/PF 40 MG/4 ML SDV IV ONE (13:00)
[2019-07-22] MEDS: HEPARIN SOD (PORCINE) 5,000 UNIT/ML 1 ML VIAL SUBCUT SCH ×2 (15:13→21:51)
[2019-07-22 16:40] LABS: ARTERIAL BLOOD H2CO3 1.04 mmol/L (1.05-1.35); ARTERIAL BLOOD HCO3 27.7 mmol/L (20-24); ARTERIAL BLOOD O2 SATURATION 96.1 % (94-98); ARTERIAL BLOOD PCO2 34.7 mmHg (35-45); ARTERIAL BLOOD PH 7.52 (7.35-7.45); ARTERIAL BLOOD PO2 73.2 mmHg (80-100); ARTERIAL BLOOD TOTAL CO2 28.8 mmol/L (23-27)
[2019-07-22 16:57] LABS: ARTERIAL BLOOD FIO2 60%
[2019-07-22] MEDS ORDERED: GLUCAGON,HUMAN RECOMB 1 MG INJ IM PRN (17:21)
[2019-07-22] MEDS ORDERED: DEXTROSE 40% GEL 15 GM TUBE PO PRN ×2 (17:21)
[2019-07-22] MEDS ORDERED: DEXTROSE 50%-WATER 25 GM/50 ML DISP.SYRIN IV PRN ×2 (17:21)
[2019-07-22] MEDS: INSULIN REG, HUMAN 100 UNIT/ML 3 ML VIAL (PYX) SUBCUT SCH (18:35)
--- NOTE | 2019-07-22 19:14 | XCELERA REPORT ---
[address] [address] Transthoracic Echocardiogram Report Name: SHARRI SINGER Age: 79 yrs Gender: Male : 1940 Patient Status: Inpatient Patient Location: ICU^607^A Study Date: 07/22/2019 05:25 PM Height: 73 in Weight: 300 lb BSA: 2.6 m2 Reason For Study: acute respiratory failure, elevated BNP Ordering Physician: BLAKE COOPER Performed By: Deena Harry Interpretation Summary FINDINGS: technically difficult. LEFT VENTRICLE: LV Systolic function: LVEF is felt to be within normal limits. Best estimate is approximately LVEF is 55-60%. LV Diastolic Function: Grade II diastolic dysfunction noted. Wall motion : not all wall segment were well visualised. Regional wall motion cannot be accurately commented upon. Left ventricular chamber size : is within normal limit. Left ventricular wall thickness : is increased indicative of Mild LVH. RIGHT VENTRICLE: RV systolic function : is felt to be within normal limit. Right Ventricle Size : is within normal limits. LEFT ATRIUM size : is mildly dilated. RIGHT ATRIUM size : is within normal limit. INTER ATRIAL SEPTUM : No definite atrial septal defect noted however a small PFO could be missed. AORTIC ROOT : seems to be within normal limits. Ascending aorta is not well visualized. INFERIOR VENA CAVA: was not well visualized. VALVES: MITRAL VALVE : Leaflets are mildly thickened. Mobility seems to be within normal limits. Mitral Regurgitation : mild mitral regurgitation is noted. Mitral Stenosis: No mitral stenosis noted. Mitral valve prolapse : none noted. AORTIC VALVE: seems to be trileaflet with mild thickening but adequate excursion. Aortic stenosis : No aortic stenosis noted. Aortic regurgitation : mild aortic incompetence noted. TRICUSPID VALVE : mobility and structures within normal limit. Tricuspid stenosis : no tricuspid stenosis noted. Tricuspid regurgitation : Trace tricuspid regurgitation noted. Estimated RVSP : cannot be accurately commented upon but possibly at upper limit of normal. PULMONARY VALVE : was not well visualized but no significant abnormalities suspected. Pulmonary stenosis : no pulmonary stenosis noted. Pulmonary regurgitation : no significant pulmonary regurgitation noted. MASSES AND THROMBUS : No definite intracardiac thrombus or masses are noted. PERICARDIUM: No pericardial effusion was noted. IMPRESSION : 1. Normal LVEF. 2. Mild LVH noted 3. Grade II Diastolic Dysfunction noted. 4. mild mitral and aortic regurgitation noted. 5. LA is mildly dilated. MMode/2D Measurements & Calculations RVDd: 2.2 cm LVIDd: 6.0 cm FS: 30.6 % Ao root diam: 3.4 cm IVSd: 1.1 cm LVIDs: 4.2 cm EDV(Teich): 179.5 ml LVPWd: 0.98 cm ESV(Teich): 76.8 ml Ao root area: 8.9 cm2 LA dimension: 3.3 cm EF(Teich): 57.2 % Doppler Measurements & Calculations MV E max maria del rosario: MV P1/2t max maria del rosario: Ao V2 max: AI max maria del rosario: 94.8 cm/sec 108.6 cm/sec 171.4 cm/sec 180.0 cm/sec MV A max maria del rosario: MV P1/2t: 122.2 msec Ao max PG: AI max P.9 cm/sec MVA(P1/2t): 1.8 cm2 11.8 mmHg 13.0 mmHg MV E/A: 0.79 MV dec slope: AI dec slope: 100.8 cm/sec2 260.3 cm/sec2 AI P1/2t: MV dec time: 522.7 msec 0.35 sec LV V1 max PG: AV P1/2t-pr_phl: MV P1/2t-pr_phl: 6.1 mmHg 522.7 msec 122.2 msec LV V1 max: 123.4 cm/sec : BLAKE COOPER Shyamal
[2019-07-22] MEDS ORDERED: MORPHINE SULFATE 10 MG/ML INJ ONE (19:29)
[2019-07-22] MEDS: MORPHINE SULFATE 10 MG/ML INJ IV PRN ×2 (19:30→22:44)
[2019-07-22] MEDS: AZITHROMYCIN 500 MG in DEXTROSE 5%-WATER 250 ML IV SCH (21:52)
[2019-07-23] MEDS: INSULIN REG, HUMAN 100 UNIT/ML 3 ML VIAL (PYX) SUBCUT SCH ×4 (00:25→17:05)
[2019-07-23] MEDS ORDERED: MIDAZOLAM HCL 50 MG/100 ML RTUINJ ONE (00:58)
[2019-07-23] MEDS: MIDAZOLAM HCL 50 MG/100 ML RTUINJ IV PRN ×4 (01:00→22:29)
[2019-07-23] MEDS: PROPOFOL 1,000 MG/100 ML INFUS..BTL IV PRN (01:15)
[2019-07-23] MEDS ORDERED: MIDAZOLAM 2 MG/2 ML INJ ONE (02:13)
[2019-07-23] MEDS ORDERED: MIDAZOLAM 2 MG/2 ML INJ IV ONE ×2 (02:20)
[2019-07-23] MEDS: MORPHINE SULFATE 10 MG/ML INJ IV PRN (02:24)
[2019-07-23] MEDS: METHYLPREDNISOLONE INJ 125 MG/2 ML SDV IV SCH ×4 (03:21→21:27)
[2019-07-23] MEDS ORDERED: DEXMEDETOMIDINE IN 0.9 % NACL 400 MCG/100 ML RTUPB IV PRN (04:33)
[2019-07-23] MEDS ORDERED: FENTANYL CITRATE INJ/PF 100 MCG/2 ML AMPUL ONE (04:40)
[2019-07-23] MEDS: FENTANYL CITRATE INJ/PF 100 MCG/2 ML AMPUL IV PRN ×6 (04:45→22:28)
[2019-07-23 05:34] LABS: ARTERIAL BLOOD BASE EXCESS 7.1 mmol/L; ARTERIAL BLOOD H2CO3 0.83 mmol/L (1.05-1.35); ARTERIAL BLOOD HCO3 27.6 mmol/L (20-24); ARTERIAL BLOOD O2 SATURATION 97.1 % (94-98); ARTERIAL BLOOD PCO2 27.7 mmHg (35-45); ARTERIAL BLOOD PO2 74.6 mmHg (80-100); ARTERIAL BLOOD TOTAL CO2 28.4 mmol/L (23-27)
[2019-07-23 05:36] LABS: ARTERIAL BLOOD PH 7.62 (7.35-7.45)
[2019-07-23] MEDS: HEPARIN SOD (PORCINE) 5,000 UNIT/ML 1 ML VIAL SUBCUT SCH ×3 (05:59→21:27)
[2019-07-23 06:23] LABS: ANION GAP 8 (5-19); BLOOD UREA NITROGEN 72 mg/dL (7-20); CALCIUM 8.9 mg/dL (8.4-10.2); CARBON DIOXIDE 29 mmol/L (22-30); CHLORIDE 106 mmol/L (98-107); GLUCOSE 238 mg/dL (75-110); POTASSIUM 4.2 mmol/L (3.6-5.0)
--- NOTE | 2019-07-23 07:11 | RADIOLOGY REPORT (SQ) ---
CHEST 1 VIEW on 07/23/2019 at 6:47 AM CLINICAL INDICATION: Respiratory failure COMPARISON: 07/22/2019 FINDINGS: ET tube tip is in the midthoracic trachea. NG tube extends likely below the diaphragm but is not well visualized distally. A few wires are noted projecting over the chest. Heart is upper limits of normal for size. There has been improvement in bilateral opacities consistent with improving areas of atelectasis and/or pneumonia. IMPRESSION: Resolving bilateral areas of atelectasis and/or pneumonia.
--- NOTE | 2019-07-23 07:25 | PDOC CRITICAL CARE PROG REPORT ---
General Date:: 07/22/19 ICU Day:: 2 Ventilator Day:: 2 Hospital Day:: 2 Resuscitation Status: Full Code Events in the past 12 to 24 Hours:: This obese 79-year-old male presented to [facility] emergency department with altered mental status. He also reported dyspnea. He was treated with BiPAP support but failed with an ABG showing 7.0/1 123/140. His mental status deteriorated to a GCS score 4, prompting endotracheal intubation. He was admitted to the ICU with acute hypercapnic respiratory failure. Initial laboratory evaluation also revealed acute on chronic kidney disease along with hyperkalemia. 07/21: The patient remains intubated. He has had interim, albeit incomplete, improvement in ventilation status with pH is now ranging 7.2-7.3. ABG results continue to suggest that his acid-base status is secondary to acute hypercapnic respiratory failure. Notably, it appears that diuresis has been the most effective, however, in improving his acid-base status. He is currently on propofol for sedation. RASS -3. He is off Levophed. He is negative for COVID- 19. Review of systems relevant to events:: Neurologic: Altered mental status Respiratory: Dyspnea, acute hypercapnic respiratory failure Cardiovascular: Hypotension Reason for ICU Addmission:: acute hypercapnic respiratory failure - Medications: Medications reviewed and adjusted accordingly: Yes Vasopressors:: Off Levophed Sedation:: propofol Physical Exam Vital Signs: Temp Pulse Resp BP Pulse Ox 99.3 F 56 L 24 H 119/45 L 88 L 07/22/19 12:00 07/22/19 12:00 07/22/19 12:00 07/22/19 12:00 07/22/19 12:00 Intake & Output 07/21/19 07/22/19 07/23/19 06:59 06:59 06:59 Intake Total 2606 179 Output Total 1560 755 Balance 1046 -576 Weight 136.4 kg Weight/Height Weight 136.4 kg Height 1.85 m General appearance: PRESENT: no acute distress, obese, well-developed, well- nourished Head exam: PRESENT: atraumatic, normocephalic Eye exam: PRESENT: conjunctiva pink, EOMI, PERRLA. ABSENT: scleral icterus Respiratory exam: PRESENT: crackles, rales, rhonchi. ABSENT: wheezes Cardiovascular exam: PRESENT: RRR. ABSENT: diastolic murmur, rubs, systolic murmur Pulses: PRESENT: normal dorsalis pedis pul Extremities exam: PRESENT: pedal edema, +1 edema. ABSENT: calf tenderness, clubbing Skin exam: PRESENT: dry, intact, warm. ABSENT: cyanosis, rash Tubes/Lines: PRESENT: Endotracheal Tube Laboratory/Radiographs Laboratory Results: 07/22/19 03:35 07/22/19 02:50 07/21/19 07/21/19 07/21/19 15:23 15:23 15:23 WBC 6.8 RBC 3.82 L Hgb 12.2 L Hct 38.0 MCV 99 H MCH 31.8 MCHC 32.0 RDW 14.2 H Plt Count 177 Seg Neutrophils % 84.7 H Carbonic Acid HCO3/H2CO3 Ratio ABG pH ABG pCO2 ABG pO2 ABG HCO3 ABG O2 Saturation ABG Base Excess FiO2 Sodium 138.0 Potassium 6.5 H* Chloride 104 Carbon Dioxide 27 Anion Gap 7 BUN 72 H Creatinine 2.72 H Est GFR ( Amer) 27 L Glucose 226 H Lactic Acid 2.1 Calcium 7.8 L Total Bilirubin 0.2 AST 17 Alkaline Phosphatase 99 Total Protein 6.4 Albumin 3.8 Urine Color Urine Appearance Urine pH Ur Specific [place] Urine Protein Urine Glucose (UA) Urine Ketones Urine Blood Urine Nitrite Ur Leukocyte Esterase Urine WBC (Auto) Urine RBC (Auto) 07/21/19 07/21/19 07/21/19 15:23 15:55 18:20 WBC RBC Hgb Hct MCV MCH MCHC RDW Plt Count Seg Neutrophils % Carbonic Acid 3.69 H 2.69 H HCO3/H2CO3 Ratio 8:1 9:1 ABG pH 7.01 L* 7.08 L* ABG pCO2 122.7 H* 89.5 H* ABG pO2 139.6 H 67.1 L ABG HCO3 30.1 H 26.1 H ABG O2 Saturation 97.0 83.9 L ABG Base Excess -3.8 -5.6 FiO2 15L 60% Sodium Potassium Chloride Carbon Dioxide Anion Gap BUN Creatinine Est GFR ( Amer) Glucose Lactic Acid Calcium Total Bilirubin AST Alkaline Phosphatase Total Protein Albumin Urine Color YELLOW Urine Appearance SLIGHTLY-CLOUDY Urine pH 5.0 Ur Specific [place] 1.016 Urine Protein 30 H Urine Glucose (UA) NEGATIVE Urine Ketones NEGATIVE Urine Blood NEGATIVE Urine Nitrite NEGATIVE Ur Leukocyte Esterase NEGATIVE Urine WBC (Auto) 5 Urine RBC (Auto) 1 07/21/19 07/21/19 07/21/19 20:10 22:00 23:00 WBC RBC Hgb Hct MCV MCH MCHC RDW Plt Count Seg Neutrophils % Carbonic Acid 1.00 L HCO3/H2CO3 Ratio 20:1 ABG pH 7.41 ABG pCO2 33.3 L ABG pO2 59.3 L ABG HCO3 20.6 ABG O2 Saturation 91.3 L ABG Base Excess -3.3 FiO2 80% Sodium Potassium Chloride Carbon Dioxide Anion Gap BUN Creatinine Est GFR ( Amer) Glucose Lactic Acid 1.2 0.8 Calcium Total Bilirubin AST Alkaline Phosphatase Total Protein Albumin Urine Color Urine Appearance Urine pH Ur Specific [place] Urine Protein Urine Glucose (UA) Urine Ketones Urine Blood Urine Nitrite Ur Leukocyte Esterase Urine WBC (Auto) Urine RBC (Auto) 07/22/19 07/22/19 07/22/19 02:50 02:50 02:50 WBC Cancelled RBC Cancelled Hgb Cancelled Hct Cancelled MCV Cancelled MCH Cancelled MCHC Cancelled RDW Cancelled Plt Count Cancelled Seg Neutrophils % Cancelled Carbonic Acid HCO3/H2CO3 Ratio ABG pH ABG pCO2 ABG pO2 ABG HCO3 ABG O2 Saturation ABG Base Excess FiO2 Sodium 139.8 Potassium 5.9 H Chloride 107 Carbon Dioxide 24 Anion Gap 9 BUN 75 H Creatinine 2.38 H Est GFR ( Amer) 32 L Glucose 140 H Lactic Acid 0.6 L Calcium 7.9 L Total Bilirubin 0.3 AST 30 Alkaline Phosphatase 95 Total Protein 6.1 L Albumin 3.7 Urine Color Urine Appearance Urine pH Ur Specific [place] Urine Protein Urine Glucose (UA) Urine Ketones Urine Blood Urine Nitrite Ur Leukocyte Esterase Urine WBC (Auto) Urine RBC (Auto) 07/22/19 07/22/19 07/22/19 03:35 06:30 10:55 WBC 6.5 RBC 3.85 L Hgb 12.2 L Hct 36.8 L MCV 96 MCH 31.6 MCHC 33.1 RDW 13.8 Plt Count 165 Seg Neutrophils % Not Reportable Carbonic Acid 1.76 H 1.52 H HCO3/H2CO3 Ratio 14:1 16:1 ABG pH 7.25 L 7.32 L ABG pCO2 58.6 H 50.6 H ABG pO2 74.7 L 43.6 L ABG HCO3 24.9 H 25.3 H ABG O2 Saturation 92.4 L 75.0 L ABG Base Excess -3.1 -1.4 FiO2 80% 75% Sodium Potassium Chloride Carbon Dioxide Anion Gap BUN Creatinine Est GFR ( Amer) Glucose Lactic Acid Calcium Total Bilirubin AST Alkaline Phosphatase Total Protein Albumin Urine Color Urine Appearance Urine pH Ur Specific [place] Urine Protein Urine Glucose (UA) Urine Ketones Urine Blood Urine Nitrite Ur Leukocyte Esterase Urine WBC (Auto) Urine RBC (Auto) 07/21/19 07/21/19 15:23 15:23 Creatine Kinase 94 CK-MB (CK-2) 3.86 Troponin I 0.020 NT-Pro-B Natriuret Pep 1890 H Impressions: Head CT 07/21/19 15:16 IMPRESSION: CHRONIC CHANGES OF ATROPHY AND MICROVASCULAR ISCHEMIA. NO ACUTE PROCESS. EVIDENCE OF ACUTE STROKE: NO. All labs, radiographs, diagnostic studies and EKGs were personally reviewed: Yes In addition, reports of radiographic and diagnostic studies were read: Yes Assessment and Plan - Diagnosis (1) Acute hypercapnic respiratory failure Is this a current diagnosis for this admission?: Yes Plan: Titrate ventilator settings based on ABG results. DVT prophylaxis: Heparin. (2) COPD exacerbation Is this a current diagnosis for this admission?: Yes Plan: Continue Solu-Medrol. Continue DuoNeb/albuterol. Continue Rocephin/Zithromax. (3) Elevated brain natriuretic peptide (BNP) level Is this a current diagnosis for this admission?: Yes Plan: Likely a result of volume overload. Trial dose of furosemide 40 mg IV single dose. 2D echocardiographic interrogation. (4) Hiatal hernia Is this a current diagnosis for this admission?: Yes Plan: GI prophylaxis: Protonix (5) Acute kidney injury Is this a current diagnosis for this admission?: Yes Plan: Improving. Avoid nephrotoxic drugs. Renal dosing of medications. (6) Hyperkalemia Is this a current diagnosis for this admission?: Yes Plan: K 6.5>5.9 without evidence of sinister changes on EKG tracing. Continue to monitor serum potassium. Furosemide dosing, as described above. (7) Macrocytic anemia Is this a current diagnosis for this admission?: Yes (8) COVID-19 ruled out Is this a current diagnosis for this admission?: Yes Critical Time Critical Time (minutes): 60 Level of Care: ICU -: 1. The care of a critical patient is a dynamic process. This note is a technical services representative synopsis but static in nature. The timeframe for treatments given in order is not necessarily the actual time these treatments may have been done. 2. This patient requires critical care secondary to ongoing requirements for therapy not offered or safe outside the critical care environment. Transfer to a lower level of care will result in altered life or limb morbidity and mortality. 3. Multidisciplinary rounds completed. 4. ABCDE bundle addressed.
[2019-07-23 09:11] LABS: ARTERIAL BLOOD BASE EXCESS 6.3 mmol/L; ARTERIAL BLOOD H2CO3 1.12 mmol/L (1.05-1.35); ARTERIAL BLOOD HCO3 29.4 mmol/L (20-24); ARTERIAL BLOOD O2 SATURATION 96.7 % (94-98); ARTERIAL BLOOD PCO2 37.1 mmHg (35-45); ARTERIAL BLOOD PH 7.52 (7.35-7.45); ARTERIAL BLOOD PO2 79.1 mmHg (80-100); ARTERIAL BLOOD TOTAL CO2 30.6 mmol/L (23-27)
[2019-07-23 09:12] LABS: ARTERIAL BLOOD FIO2 40%
[2019-07-23] MEDS: ASPIRIN 81 MG TABLET, CHEWABLE NG SCH (09:22)
[2019-07-23] MEDS: GABAPENTIN 300 MG CAPSULE NG SCH ×2 (09:22→17:05)
[2019-07-23] MEDS: LISINOPRIL 10 MG TABLET NG SCH (09:22)
[2019-07-23] MEDS: PANTOPRAZOLE SODIUM 40 MG VIAL IV SCH (09:22)
[2019-07-23] MEDS: CEFTRIAXONE 1 GM/D5W RTU 1 GM/50 ML RTUPB IV SCH (09:23)
[2019-07-23] MEDS ORDERED: FUROSEMIDE INJ/PF 40 MG/4 ML SDV IV ONE (09:30)
[2019-07-23] MEDS: DOXAZOSIN MESYLATE 4 MG TABLET NG SCH (10:51)
[2019-07-23 13:21] LABS: ARTERIAL BLOOD BASE EXCESS 4.3 mmol/L; ARTERIAL BLOOD H2CO3 1.44 mmol/L (1.05-1.35); ARTERIAL BLOOD HCO3 29.7 mmol/L (20-24); ARTERIAL BLOOD O2 SATURATION 87.9 % (94-98); ARTERIAL BLOOD PCO2 47.9 mmHg (35-45); ARTERIAL BLOOD PH 7.41 (7.35-7.45); ARTERIAL BLOOD PO2 53.7 mmHg (80-100); ARTERIAL BLOOD TOTAL CO2 31.2 mmol/L (23-27)
[2019-07-23 13:22] LABS: ARTERIAL BLOOD FIO2 35%
[2019-07-23 17:41] LABS: ARTERIAL BLOOD BASE EXCESS 7.9 mmol/L; ARTERIAL BLOOD HCO3 33.8 mmol/L (20-24); ARTERIAL BLOOD PH 7.42 (7.35-7.45); ARTERIAL BLOOD PO2 69.4 mmHg (80-100); ARTERIAL BLOOD TOTAL CO2 35.5 mmol/L (23-27)
[2019-07-23 17:42] LABS: ARTERIAL BLOOD FIO2 40%
--- NOTE | 2019-07-23 18:01 | PDOC CRITICAL CARE PROG REPORT ---
General Date:: 07/23/19 ICU Day:: 3 Ventilator Day:: 3 Hospital Day:: 3 Resuscitation Status: Full Code Events in the past 12 to 24 Hours:: This obese 79-year-old male presented to [facility] emergency department with altered mental status. He also reported dyspnea. He was treated with BiPAP support but failed with an ABG showing 7.0/1 123/140. His mental status deteriorated to a GCS score 4, prompting endotracheal intubation. He was admitted to the ICU with acute hypercapnic respiratory failure. Initial laboratory evaluation also revealed acute on chronic kidney disease along with hyperkalemia. 07/21: The patient remains intubated. He has had interim, albeit incomplete, improvement in ventilation status with pH is now ranging 7.2-7.3. ABG results continue to suggest that his acid-base status is secondary to acute hypercapnic respiratory failure. Notably, it appears that diuresis has been the most effective, however, in improving his acid-base status. He is currently on prop ofol for sedation. RASS -3. He is off Levophed. He is negative for COVID-19. 07/22: Remains intubated. FiO2 now down to 40%. Still on PEEP 10. Episodes of bradycardia, apparently sensitive to propofol dosing. Propofol was switched to Versed. Also getting intermittent fentanyl pushes. Off Levophed. Hypertensive now. Review of systems relevant to events:: Neurologic: Altered mental status Respiratory: Dyspnea, acute hypercapnic respiratory failure Cardiovascular: Hypotension Reason for ICU Addmission:: acute hypercapnic respiratory failure - Medications: Medications reviewed and adjusted accordingly: Yes Vasopressors:: Off Levophed Sedation:: Versed/fentanyl Physical Exam Vital Signs: Temp Pulse Resp BP Pulse Ox 98.8 F 55 L 14 173/82 H 94 07/23/19 06:00 07/22/19 22:00 07/23/19 06:00 07/23/19 05:58 07/23/19 08:32 Intake & Output 07/22/19 07/23/19 07/24/19 06:59 06:59 06:59 Intake Total 2606 845 50 Output Total 1560 6145 Balance 1046 -5460 50 Weight 136.4 kg 132.2 kg Weight/Height Weight 132.2 kg Height 1.85 m General appearance: PRESENT: no acute distress, well-developed, well-nourished Head exam: PRESENT: atraumatic, normocephalic Eye exam: PRESENT: conjunctiva pink, EOMI, PERRLA - Most pinpoint pupils. ABSENT: scleral icterus Neck exam: ABSENT: carotid bruit, JVD, lymphadenopathy, thyromegaly Respiratory exam: PRESENT: clear to auscultation nayeli, crackles. ABSENT: rhonchi, wheezes Cardiovascular exam: PRESENT: bradycardia, RRR. ABSENT: diastolic murmur, rubs, systolic murmur Pulses: PRESENT: normal dorsalis pedis pul GI/Abdominal exam: PRESENT: normal bowel sounds, soft. ABSENT: distended, guarding, mass, organolmegaly, rebound, tenderness Extremities exam: PRESENT: full ROM, pedal edema. ABSENT: calf tenderness, clubbing Skin exam: PRESENT: dry, intact, warm. ABSENT: cyanosis, rash Tubes/Lines: PRESENT: Endotracheal Tube Laboratory/Radiographs Laboratory Results: 07/22/19 03:35 07/23/19 05:59 07/22/19 07/22/19 07/22/19 10:55 15:10 16:35 Carbonic Acid 1.52 H 1.04 L HCO3/H2CO3 Ratio 16:1 26:1 ABG pH 7.32 L 7.52 H ABG pCO2 50.6 H 34.7 L ABG pO2 43.6 L 73.2 L ABG HCO3 25.3 H 27.7 H ABG O2 Saturation 75.0 L 96.1 ABG Base Excess -1.4 5.0 FiO2 75% 60% Sodium Potassium 4.8 D Chloride Carbon Dioxide Anion Gap BUN Creatinine Est GFR ( Amer) Glucose Calcium Magnesium 07/23/19 07/23/19 07/23/19 05:05 05:59 09:02 Carbonic Acid 0.83 L 1.12 HCO3/H2CO3 Ratio 33:1 26:1 ABG pH 7.62 H* 7.52 H ABG pCO2 27.7 L 37.1 ABG pO2 74.6 L 79.1 L ABG HCO3 27.6 H 29.4 H ABG O2 Saturation 97.1 96.7 ABG Base Excess 7.1 6.3 FiO2 55% 40% Sodium 143.4 Potassium 4.2 Chloride 106 Carbon Dioxide 29 Anion Gap 8 BUN 72 H Creatinine 1.63 H Est GFR ( Amer) 50 L Glucose 238 H Calcium 8.9 Magnesium 2.2 07/21/19 07/21/19 15:23 15:23 Creatine Kinase 94 CK-MB (CK-2) 3.86 Troponin I 0.020 NT-Pro-B Natriuret Pep 1890 H Impressions: Head CT 07/21/19 15:16 IMPRESSION: CHRONIC CHANGES OF ATROPHY AND MICROVASCULAR ISCHEMIA. NO ACUTE PROCESS. EVIDENCE OF ACUTE STROKE: NO. Chest X-Ray 07/23/19 05:00 IMPRESSION: Resolving bilateral areas of atelectasis and/or pneumonia. All labs, radiographs, diagnostic studies and EKGs were personally reviewed: Yes In addition, reports of radiographic and diagnostic studies were read: Yes Assessment and Plan - Diagnosis (1) Acute hypercapnic respiratory failure Is this a current diagnosis for this admission?: Yes Plan: Titrate ventilator settings based on ABG results. Add morphine. Titrate propofol. DVT prophylaxis: Heparin. (2) COPD exacerbation Is this a current diagnosis for this admission?: Yes Plan: Decrease Solu-Medrol to 60 mg IV every 12 hours. Continue DuoNeb/albuterol. Continue Rocephin/Zithromax. (3) Elevated brain natriuretic peptide (BNP) level Is this a current diagnosis for this admission?: Yes Plan: Likely a result of volume overload. Furosemide 40 mg IV again today. 2D echo (07/22/2019): LVEF 55-60%. Grade 2 diastolic dysfunction. RV size within normal limits. Mild mitral and aortic regurgitation. LA mildly dilated. (4) Hiatal hernia Is this a current diagnosis for this admission?: Yes Plan: GI prophylaxis: Protonix (5) Acute kidney injury Is this a current diagnosis for this admission?: Yes Plan: Improving creatinine 2.72>2.38>1.63. Avoid nephrotoxic drugs. Renal dosing of medications. (6) Hyperkalemia Is this a current diagnosis for this admission?: Yes Plan: Resolved. (7) Macrocytic anemia Is this a current diagnosis for this admission?: Yes (8) COVID-19 ruled out Is this a current diagnosis for this admission?: Yes Critical Time Critical Time (minutes): 60 Level of Care: ICU -: 1. The care of a critical patient is a dynamic process. This note is a quality control representative synopsis but static in nature. The timeframe for treatments given in order is not necessarily the actual time these treatments may have been done. 2. This patient requires critical care secondary to ongoing requirements for therapy not offered or safe outside the critical care environment. Transfer to a lower level of care will result in altered life or limb morbidity and mortality. 3. Multidisciplinary rounds completed. 4. ABCDE bundle addressed.
[2019-07-23] MEDS: AZITHROMYCIN 500 MG in DEXTROSE 5%-WATER 250 ML IV SCH (21:26)
[2019-07-24] MEDS: INSULIN REG, HUMAN 100 UNIT/ML 3 ML VIAL (PYX) SUBCUT SCH ×5 (00:09→23:00)
[2019-07-24] MEDS: FENTANYL CITRATE INJ/PF 100 MCG/2 ML AMPUL IV PRN ×5 (00:49→12:09)
[2019-07-24] MEDS: METHYLPREDNISOLONE INJ 125 MG/2 ML SDV IV SCH ×4 (03:12→21:21)
[2019-07-24] MEDS: HEPARIN SOD (PORCINE) 5,000 UNIT/ML 1 ML VIAL SUBCUT SCH ×3 (05:59→21:21)
[2019-07-24 08:12] LABS: ARTERIAL BLOOD BASE EXCESS 7.6 mmol/L; ARTERIAL BLOOD FIO2 40%; ARTERIAL BLOOD H2CO3 1.91 mmol/L (1.05-1.35); ARTERIAL BLOOD HCO3 35.2 mmol/L (20-24); ARTERIAL BLOOD O2 SATURATION 86.6 % (94-98); ARTERIAL BLOOD PCO2 63.6 mmHg (35-45); ARTERIAL BLOOD PH 7.36 (7.35-7.45); ARTERIAL BLOOD PO2 55.1 mmHg (80-100); ARTERIAL BLOOD TOTAL CO2 37.2 mmol/L (23-27)
[2019-07-24] MEDS: MIDAZOLAM HCL 50 MG/100 ML RTUINJ IV PRN (08:16)
[2019-07-24 08:30] LABS: HEMATOCRIT 38.2 % (37.9-51.0); HEMOGLOBIN 12.7 g/dL (13.5-17.0); MEAN CORPUSCULAR HEMOGLOBIN 31.6 pg (27.0-33.4); MEAN CORPUSCULAR HGB CONC 33.3 g/dL (32.0-36.0); MEAN CORPUSCULAR VOLUME 95 fl (80-97); PLATELET COUNT 189 10^3/uL (150-450); RED BLOOD COUNT 4.02 10^6/uL (4.35-5.55); RED CELL DISTRIBUTION WIDTH 13.9 % (11.5-14.0); WHITE BLOOD COUNT 8.9 10^3/uL (4.0-10.5)
[2019-07-24 08:48] LABS: ANION GAP 5 (5-19); BLOOD UREA NITROGEN 67 mg/dL (7-20); CALCIUM 8.6 mg/dL (8.4-10.2); CARBON DIOXIDE 31 mmol/L (22-30); CHLORIDE 108 mmol/L (98-107); GLUCOSE 244 mg/dL (75-110); PHOSPHORUS 4.7 mg/dL (2.5-4.5); POTASSIUM 4.2 mmol/L (3.6-5.0)
[2019-07-24 08:53] LABS: ABSOLUTE LYMPHOCYTES# (MANUAL) 0.3 10^3/uL (0.5-4.7); ABSOLUTE MONOCYTES # (MANUAL) 0.2 10^3/uL (0.1-1.4); BASOPHILS % (MANUAL) 0 % (0-2); EOSINOPHILS % (MANUAL) 0 % (0-6); LYMPHOCYTES % (MANUAL) 3 % (13-45); MONOCYTES % (MANUAL) 2 % (3-13); SEGMENTED NEUTROPHILS % (MAN) 95 % (42-78); TOTAL CELLS COUNTED 100
[2019-07-24 08:54] LABS: OVALOCYTES 1+; PLATELET COMMENT ADEQUATE; POIKILOCYTOSIS 1+
[2019-07-24] MEDS: ASPIRIN 81 MG TABLET, CHEWABLE NG SCH (09:06)
[2019-07-24] MEDS: CEFTRIAXONE 1 GM/D5W RTU 1 GM/50 ML RTUPB IV SCH (09:06)
[2019-07-24] MEDS: LISINOPRIL 10 MG TABLET NG SCH (09:06)
[2019-07-24] MEDS: PANTOPRAZOLE SODIUM 40 MG VIAL IV SCH (09:06)
[2019-07-24] MEDS: GABAPENTIN 300 MG CAPSULE NG SCH ×2 (09:06→17:29)
[2019-07-24] MEDS: DOXAZOSIN MESYLATE 4 MG TABLET NG SCH (09:06)
[2019-07-24] MEDS ORDERED: FUROSEMIDE INJ/PF 40 MG/4 ML SDV IV SCH (10:30)
[2019-07-24 14:01] LABS: ARTERIAL BLOOD BASE EXCESS 6.5 mmol/L; ARTERIAL BLOOD FIO2 40%; ARTERIAL BLOOD H2CO3 1.57 mmol/L (1.05-1.35); ARTERIAL BLOOD HCO3 32.5 mmol/L (20-24); ARTERIAL BLOOD O2 SATURATION 90.6 % (94-98); ARTERIAL BLOOD PCO2 52.3 mmHg (35-45); ARTERIAL BLOOD PH 7.41 (7.35-7.45); ARTERIAL BLOOD PO2 59.3 mmHg (80-100); ARTERIAL BLOOD TOTAL CO2 34.1 mmol/L (23-27)
[2019-07-24] MEDS ORDERED: ENALAPRILAT DIHYDRATE INJ/PF 1.25 MG/1 ML SDV IV ONE ×2 (14:06→16:15)
--- NOTE | 2019-07-24 16:31 | PDOC CRITICAL CARE PROG REPORT ---
General Date:: 07/24/19 ICU Day:: 4 Ventilator Day:: 4 Hospital Day:: 4 Resuscitation Status: Full Code Events in the past 12 to 24 Hours:: This obese 79-year-old male presented to [facility] emergency department with altered mental status. He also reported dyspnea. He was treated with BiPAP support but failed with an ABG showing 7.0/1 123/140. His mental status deteriorated to a GCS score 4, prompting endotracheal intubation. He was admitted to the ICU with acute hypercapnic respiratory failure. Initial laboratory evaluation also revealed acute on chronic kidney disease along with hyperkalemia. 07/21: The patient remains intubated. He has had interim, albeit incomplete, improvement in ventilation status with pH is now ranging 7.2-7.3. ABG results continue to suggest that his acid-base status is secondary to acute hypercapnic respiratory failure. Notably, it appears that diuresis has been the most effective, however, in improving his acid-base status. He is currently on prop ofol for sedation. RASS -3. He is off Levophed. He is negative for COVID-19. 07/22: Remains intubated. FiO2 now down to 40%. Still on PEEP 10. Episodes of bradycardia, apparently sensitive to propofol dosing. Propofol was switched to Versed. Also getting intermittent fentanyl pushes. Off Levophed. Hypertensive now. 07/23: Remains intubated. On Versed/fentanyl for sedation. Hypertensive. FiO2 down to 40%. Review of systems relevant to events:: Neurologic: Altered mental status Respiratory: Dyspnea, acute hypercapnic respiratory failure Cardiovascular: Hypotension Reason for ICU Addmission:: acute hypercapnic respiratory failure - Medications: Medications reviewed and adjusted accordingly: Yes Vasopressors:: Off Levophed Sedation:: Versed/fentanyl Physical Exam Vital Signs: Temp Pulse Resp BP Pulse Ox 98.1 F 51 L 15 162/68 H 92 07/24/19 08:58 07/23/19 21:29 07/24/19 08:58 07/24/19 08:58 07/24/19 08:58 Intake & Output 07/23/19 07/24/19 07/25/19 06:59 06:59 06:59 Intake Total 845 505 77 Output Total 0323 6077 65 Balance -6763 -6139 12 Weight 132.2 kg 129.1 kg Weight/Height Weight 129.1 kg Height 1.85 m General appearance: PRESENT: no acute distress, obese, well-developed, well- nourished Eye exam: PRESENT: conjunctiva pink, EOMI, periorbital swelling, PERRLA. ABSENT: scleral icterus Mouth exam: PRESENT: moist, tongue midline Neck exam: ABSENT: carotid bruit, JVD, lymphadenopathy, thyromegaly Respiratory exam: PRESENT: crackles, decreased breath sounds Cardiovascular exam: PRESENT: RRR. ABSENT: diastolic murmur, rubs, systolic murmur Pulses: PRESENT: normal dorsalis pedis pul GI/Abdominal exam: PRESENT: normal bowel sounds, soft. ABSENT: distended, guarding, mass, organolmegaly, rebound, tenderness Extremities exam: PRESENT: full ROM, pedal edema. ABSENT: calf tenderness, clubbing Musculoskeletal exam: PRESENT: normal inspection. ABSENT: deformity Skin exam: PRESENT: dry, intact, warm. ABSENT: cyanosis, rash Tubes/Lines: PRESENT: Endotracheal Tube Laboratory/Radiographs Laboratory Results: 07/24/19 08:09 07/24/19 08:09 07/23/19 07/23/19 07/24/19 13:05 17:25 07:59 WBC RBC Hgb Hct MCV MCH MCHC RDW Plt Count Seg Neutrophils % Carbonic Acid 1.44 H 1.60 H 1.91 H HCO3/H2CO3 Ratio 20:1 21:1 18:1 ABG pH 7.41 7.42 7.36 ABG pCO2 47.9 H 53.0 H 63.6 H ABG pO2 53.7 L 69.4 L 55.1 L ABG HCO3 29.7 H 33.8 H 35.2 H ABG O2 Saturation 87.9 L 94.0 86.6 L ABG Base Excess 4.3 7.9 7.6 FiO2 35% 40% 40% Sodium Potassium Chloride Carbon Dioxide Anion Gap BUN Creatinine Est GFR ( Amer) Glucose Calcium Phosphorus Magnesium 07/24/19 07/24/19 08:09 08:09 WBC 8.9 RBC 4.02 L Hgb 12.7 L Hct 38.2 MCV 95 MCH 31.6 MCHC 33.3 RDW 13.9 Plt Count 189 Seg Neutrophils % Not Reportable Carbonic Acid HCO3/H2CO3 Ratio ABG pH ABG pCO2 ABG pO2 ABG HCO3 ABG O2 Saturation ABG Base Excess FiO2 Sodium 144.3 Potassium 4.2 Chloride 108 H Carbon Dioxide 31 H Anion Gap 5 BUN 67 H Creatinine 1.17 Est GFR ( Amer) > 60 Glucose 244 H Calcium 8.6 Phosphorus 4.7 H Magnesium 2.3 07/22/19 08:28 Tracheal Aspirate Gram Stain - Final 07/22/19 08:28 Tracheal Aspirate Sputum Culture - Final NORMAL LEANNA 07/21/19 07/21/19 15:23 15:23 Creatine Kinase 94 CK-MB (CK-2) 3.86 Troponin I 0.020 NT-Pro-B Natriuret Pep 1890 H Impressions: Head CT 07/21/19 15:16 IMPRESSION: CHRONIC CHANGES OF ATROPHY AND MICROVASCULAR ISCHEMIA. NO ACUTE PROCESS. EVIDENCE OF ACUTE STROKE: NO. Chest X-Ray 07/23/19 05:00 IMPRESSION: Resolving bilateral areas of atelectasis and/or pneumonia. All labs, radiographs, diagnostic studies and EKGs were personally reviewed: Yes In addition, reports of radiographic and diagnostic studies were read: Yes Assessment and Plan - Diagnosis (1) Acute hypercapnic respiratory failure Is this a current diagnosis for this admission?: Yes Plan: PSV trial/SBT today. DVT prophylaxis: Heparin. (2) COPD exacerbation Is this a current diagnosis for this admission?: Yes Plan: Continue Solu-Medrol 60 mg IV every 12 hours. Continue DuoNeb/albuterol. Continue Rocephin/Zithromax. (3) Elevated brain natriuretic peptide (BNP) level Is this a current diagnosis for this admission?: Yes Plan: Furosemide 40 mg IV daily. (Takes furosemide 40 mg p.o. daily at home) 2D echo (07/22/2019): LVEF 55-60%. Grade 2 diastolic dysfunction. RV size within normal limits. Mild mitral and aortic regurgitation. LA mildly dilated. (4) Hiatal hernia Is this a current diagnosis for this admission?: Yes (5) Acute kidney injury Is this a current diagnosis for this admission?: Yes Plan: Resolved, creatinine 2.72>2.38>1.63>1.17. Avoid nephrotoxic drugs. (6) Hyperkalemia Is this a current diagnosis for this admission?: Yes (7) Macrocytic anemia Is this a current diagnosis for this admission?: Yes (8) COVID-19 ruled out Is this a current diagnosis for this admission?: Yes Critical Time Critical Time (minutes): 60 Level of Care: ICU -: 1. The care of a critical patient is a dynamic process. This note is a u.s. representative synopsis but static in nature. The timeframe for treatments given in order is not necessarily the actual time these treatments may have been done. 2. This patient requires critical care secondary to ongoing requirements for therapy not offered or safe outside the critical care environment. Transfer to a lower level of care will result in altered life or limb morbidity and mortality. 3. Multidisciplinary rounds completed. 4. ABCDE bundle addressed.
[2019-07-24] MEDS: AZITHROMYCIN 500 MG in DEXTROSE 5%-WATER 250 ML IV SCH (21:20)
[2019-07-25] MEDS: METHYLPREDNISOLONE INJ 125 MG/2 ML SDV IV SCH (02:03)
[2019-07-25 05:11] LABS: HEMATOCRIT 40.9 % (37.9-51.0); HEMOGLOBIN 13.2 g/dL (13.5-17.0); MEAN CORPUSCULAR HEMOGLOBIN 30.5 pg (27.0-33.4); MEAN CORPUSCULAR HGB CONC 32.2 g/dL (32.0-36.0); MEAN CORPUSCULAR VOLUME 95 fl (80-97); PLATELET COUNT 176 10^3/uL (150-450); RED BLOOD COUNT 4.31 10^6/uL (4.35-5.55); RED CELL DISTRIBUTION WIDTH 13.6 % (11.5-14.0); WHITE BLOOD COUNT 10.4 10^3/uL (4.0-10.5)
[2019-07-25] MEDS: INSULIN REG, HUMAN 100 UNIT/ML 3 ML VIAL (PYX) SUBCUT SCH ×3 (05:24→18:35)
[2019-07-25] MEDS: HEPARIN SOD (PORCINE) 5,000 UNIT/ML 1 ML VIAL SUBCUT SCH ×3 (05:24→21:27)
[2019-07-25 05:37] LABS: ABSOLUTE LYMPHOCYTES# (MANUAL) 0.4 10^3/uL (0.5-4.7); ABSOLUTE MONOCYTES # (MANUAL) 0.5 10^3/uL (0.1-1.4); ALBUMIN 3.9 g/dL (3.5-5.0); ALKALINE PHOSPHATASE 97 U/L (38-126); ANION GAP 9 (5-19); ASPARTATE AMINO TRANSFERASE 37 U/L (17-59); BASOPHILS % (MANUAL) 0 % (0-2); BILIRUBIN,TOTAL 0.7 mg/dL (0.2-1.3); BLOOD UREA NITROGEN 57 mg/dL (7-20); CALCIUM 8.7 mg/dL (8.4-10.2); CARBON DIOXIDE 34 mmol/L (22-30); CHLORIDE 101 mmol/L (98-107); EOSINOPHILS % (MANUAL) 0 % (0-6); GLUCOSE 258 mg/dL (75-110); LYMPHOCYTES % (MANUAL) 4 % (13-45); MONOCYTES % (MANUAL) 5 % (3-13); PHOSPHORUS 4.7 mg/dL (2.5-4.5); PLATELET COMMENT ADEQUATE; POTASSIUM 4.5 mmol/L (3.6-5.0); RBC MORPHOLOGY COMMENT NORMO-CYTIC/CHROMIC; SEGMENTED NEUTROPHILS % (MAN) 91 % (42-78); TOTAL CELLS COUNTED 100; TOTAL PROTEIN 6.4 g/dL (6.3-8.2)
[2019-07-25 05:44] LABS: PREALBUMIN 22.2 mg/dL (17.6-36.0)
--- NOTE | 2019-07-25 06:06 | RADIOLOGY REPORT (SQ) ---
EXAM DESCRIPTION: XR CHEST 1 VIEW COMPLETED DATE/TME: 07/25/2019 05:00 CLINICAL HISTORY: 79 years Male, acute respiratory failure COMPARISON: 2 days prior. NUMBER OF VIEWS/TECHNIQUE: 1/AP FINDINGS: Small bibasilar opacity-effusion. Moderate lung volume. Normal cardiac silhouette size. No pneumothorax. Stable bony thorax. IMPRESSION: Interval extubation.
[2019-07-25] MEDS ORDERED: DOXAZOSIN MESYLATE 4 MG TABLET PO SCH (10:00)
[2019-07-25] MEDS ORDERED: (PENDING PHARMACY ID) (Sitagliptin Phos/Metformin Hcl [Janumet Xr 50-1,000 Mg Tablet] 1 TA PO SCH (10:00)
[2019-07-25] MEDS ORDERED: (PENDING PHARMACY ID) (Fluticasone/Salmeterol 1 PUFF) IH SCH (10:00)
--- NOTE | 2019-07-25 10:29 | PDOC CRITICAL CARE PROG REPORT ---
General Date:: 07/25/19 ICU Day:: 4 Hospital Day:: 4 Resuscitation Status: Full Code Events in the past 12 to 24 Hours:: Extubated and doing well. Review of systems relevant to events:: Respiratory Reason for ICU Addmission:: acute hypercapnic respiratory failure, now extubated. - Medications: Medications reviewed and adjusted accordingly: Yes Vasopressors:: None Sedation:: None. Physical Exam Vital Signs: Temp Pulse Resp BP Pulse Ox 98.6 F 83 23 H 180/70 H 98 07/25/19 08:00 07/25/19 09:17 07/25/19 08:00 07/25/19 08:00 07/25/19 08:00 Intake & Output 07/24/19 07/25/19 07/26/19 06:59 06:59 06:59 Intake Total 505 393 Output Total 2640 2850 375 Balance -2135 -2457 -375 Weight 129.1 kg 129.2 kg Weight/Height Weight 129.2 kg Height 6 ft 1 in General appearance: PRESENT: no acute distress, well-developed, well-nourished Head exam: PRESENT: atraumatic, normocephalic Eye exam: PRESENT: conjunctiva pink, EOMI, PERRLA. ABSENT: scleral icterus Ear exam: PRESENT: normal external ear exam Mouth exam: PRESENT: moist, tongue midline Respiratory exam: PRESENT: clear to auscultation nayeli. ABSENT: rales, rhonchi, wheezes Cardiovascular exam: PRESENT: RRR. ABSENT: diastolic murmur, rubs, systolic murmur GI/Abdominal exam: PRESENT: normal bowel sounds, soft. ABSENT: distended, guarding, mass, organolmegaly, rebound, tenderness Rectal exam: PRESENT: deferred Extremities exam: PRESENT: full ROM. ABSENT: calf tenderness, clubbing, pedal edema Musculoskeletal exam: PRESENT: normal inspection Neurological exam: PRESENT: alert, awake, oriented to person, oriented to place, oriented to time, oriented to situation, CN II-XII grossly intact. ABSENT: motor sensory deficit Psychiatric exam: PRESENT: appropriate affect, normal mood. ABSENT: homicidal ideation, suicidal ideation Skin exam: PRESENT: dry, intact, warm. ABSENT: cyanosis, rash Laboratory/Radiographs Laboratory Results: 07/25/19 04:27 07/25/19 04:27 05/01/0207/25/19 07/25/19 13:50 04:27 04:27 WBC 10.4 RBC 4.31 L Hgb 13.2 L Hct 40.9 MCV 95 MCH 30.5 MCHC 32.2 RDW 13.6 Plt Count 176 Seg Neutrophils % Not Reportable Carbonic Acid 1.57 H HCO3/H2CO3 Ratio 20:1 ABG pH 7.41 ABG pCO2 52.3 H ABG pO2 59.3 L ABG HCO3 32.5 H ABG O2 Saturation 90.6 L ABG Base Excess 6.5 FiO2 40% Sodium 143.5 Potassium 4.5 Chloride 101 Carbon Dioxide 34 H Anion Gap 9 BUN 57 H Creatinine 0.99 Est GFR ( Amer) > 60 Glucose 258 H Calcium 8.7 Phosphorus 4.7 H Magnesium 2.1 Total Bilirubin 0.7 AST 37 Alkaline Phosphatase 97 Total Protein 6.4 Albumin 3.9 Prealbumin 22.2 07/22/19 08:28 Tracheal Aspirate Gram Stain - Final 07/22/19 08:28 Tracheal Aspirate Sputum Culture - Final NORMAL LEANNA 07/21/19 07/21/19 15:23 15:23 Creatine Kinase 94 CK-MB (CK-2) 3.86 Troponin I 0.020 NT-Pro-B Natriuret Pep 1890 H Impressions: Head CT 07/21/19 15:16 IMPRESSION: CHRONIC CHANGES OF ATROPHY AND MICROVASCULAR ISCHEMIA. NO ACUTE SD OCESS. EVIDENCE OF ACUTE STROKE: NO. Chest X-Ray 07/25/19 05:00 IMPRESSION: Interval extubation. All labs, radiographs, diagnostic studies and EKGs were personally reviewed: Yes In addition, reports of radiographic and diagnostic studies were read: Yes Assessment and Plan - Diagnosis (1) Acute hypercapnic respiratory failure Is this a current diagnosis for this admission?: Yes Plan: Resolved. Extubated for a day and able to be downgraded. (2) COPD exacerbation Is this a current diagnosis for this admission?: Yes Plan: No wheezing and his steroids now include prednisone. (3) COVID-19 ruled out Is this a current diagnosis for this admission?: Yes Plan: Covid 19 is negative. 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 With a reductionof steroids for COPD, let's see if his BG goes down. Critical Time Critical Time (minutes): 30 Level of Care: MEDICAL Anticipated discharge: Home Within: within 48 hours -: 1. The care of a critical patient is a dynamic process. This note is a account retention representative synopsis but static in nature. The timeframe for treatments given in order is not necessarily the actual time these treatments may have been done. 2. This patient requires critical care secondary to ongoing requirements for therapy not offered or safe outside the critical care environment. Transfer to a lower level of care will result in altered life or limb morbidity and mortality. 3. Multidisciplinary rounds completed. 4. ABCDE bundle addressed.
[2019-07-25] MEDS: IBUPROFEN 800 MG TABLET PO SCH ×3 (10:33→21:27)
[2019-07-25] MEDS: PREDNISONE 20 MG TABLET PO SCH (10:33)
[2019-07-25] MEDS: DIPHENHYDRAMINE HCL 50 MG CAPSULE PO SCH ×3 (10:34→21:27)
[2019-07-25] MEDS: GABAPENTIN 300 MG CAPSULE PO SCH ×3 (10:34→21:27)
[2019-07-25] MEDS: FINASTERIDE 5 MG TABLET PO SCH (10:34)
[2019-07-25] MEDS: ASPIRIN 81 MG TABLET, ENT COATED PO SCH (10:34)
[2019-07-25] MEDS: METOPROLOL SUCCINATE 50 MG TAB.SR.24H PO SCH (10:34)
[2019-07-25] MEDS: CEFTRIAXONE 1 GM/D5W RTU 1 GM/50 ML RTUPB IV SCH (10:34)
[2019-07-25] MEDS: LISINOPRIL 10 MG TABLET PO SCH (10:35)
[2019-07-25] MEDS: FUROSEMIDE 40 MG TABLET PO SCH (10:35)
[2019-07-25] MEDS: FLUTICASONE/VILANTEROL 200-25 MCG/DOSE IH SCH (10:43)
[2019-07-25] MEDS: GLIPIZIDE XL 5 MG TAB.ER.24 PO SCH ×2 (10:44→17:21)
[2019-07-25] MEDS: INSULIN GLARGINE,HUM.REC.ANLOG 1,000 UNIT/10 ML VIAL SUBCUT SCH (10:44)
--- NOTE | 2019-07-25 17:37 | Progress Note ---
Provider Note Provider Note: The patient is an 79-year-old male with a past medical history of COPD, CHF, SAGE, CPAP noncompliance, type 2 diabetes, and obesity who was admitted to the bacteriology technician service on 07/21/2023 acute hypercapnic respiratory failure secondary to COPD exacerbation requiring intubation. He was successfully extubated on 07/23. He is downgraded to the telemetry floor on 07/24 and transferred to the hospitalist service. H&P, Progress noted, overnight events, vital signs, lab/radiology results, and orders reviewed. Agree with the current plan of care as established by the previous provider. Continues on supplemental oxygen, empiric Azithromycin/Ceftriaxone (likely can deescalate as patient is clinically improved; will continue today as he has low grade temp), Advair, as needed nebs, and prednisone. Will add IS and Flutter valve for pulmonary toilet. Nursing reports that patient was very weak during transfer from stretcher to bed; have requested PT/OT consult. Discharge planning is consulted; anticipate he will benefit from home health services.
[2019-07-25] MEDS: ATORVASTATIN CALCIUM 80 MG TABLET PO SCH (21:27)
[2019-07-25] MEDS: AZITHROMYCIN 500 MG in DEXTROSE 5%-WATER 250 ML IV SCH (21:28)
[2019-07-26] MEDS: INSULIN REG, HUMAN 100 UNIT/ML 3 ML VIAL (PYX) SUBCUT SCH ×4 (06:14→18:57)
[2019-07-26] MEDS: HEPARIN SOD (PORCINE) 5,000 UNIT/ML 1 ML VIAL SUBCUT SCH ×3 (06:18→21:41)
[2019-07-26] MEDS: INSULIN GLARGINE,HUM.REC.ANLOG 1,000 UNIT/10 ML VIAL SUBCUT SCH (07:44)
[2019-07-26] MEDS: PREDNISONE 20 MG TABLET PO SCH (09:49)
[2019-07-26] MEDS: LISINOPRIL 10 MG TABLET PO SCH (09:49)
[2019-07-26] MEDS: DIPHENHYDRAMINE HCL 50 MG CAPSULE PO SCH ×2 (09:49→21:40)
[2019-07-26] MEDS: FUROSEMIDE 40 MG TABLET PO SCH (09:49)
[2019-07-26] MEDS: ASPIRIN 81 MG TABLET, ENT COATED PO SCH (09:50)
[2019-07-26] MEDS: GABAPENTIN 300 MG CAPSULE PO SCH ×2 (09:50→21:39)
[2019-07-26] MEDS: CEFTRIAXONE 1 GM/D5W RTU 1 GM/50 ML RTUPB IV SCH (09:50)
[2019-07-26] MEDS: METOPROLOL SUCCINATE 50 MG TAB.SR.24H PO SCH (09:50)
[2019-07-26] MEDS: IBUPROFEN 800 MG TABLET PO SCH ×2 (09:50→21:40)
[2019-07-26] MEDS: GLIPIZIDE XL 5 MG TAB.ER.24 PO SCH ×2 (09:54→18:56)
[2019-07-26] MEDS: FINASTERIDE 5 MG TABLET PO SCH (09:58)
[2019-07-26] MEDS: FLUTICASONE/VILANTEROL 200-25 MCG/DOSE IH SCH (10:12)
--- NOTE | 2019-07-26 18:59 | PDOC PROGRESS REPORT ---
Subjective Progress Note for:: 07/26/19 Subjective:: F/u of COPD, Respiratory Failure Reason For Visit: ACUTE HYPERCAPNIC RESPIRATORY FAILURE Physical Exam Vital Signs: Temp Pulse Resp BP Pulse Ox 97.4 F 61 16 150/55 H 98 07/26/19 11:43 07/26/19 14:12 07/26/19 14:12 07/26/19 11:43 07/26/19 14:12 Intake & Output 07/25/19 07/26/19 07/27/19 06:59 06:59 06:59 Intake Total 393 2100 Output Total 2850 425 Balance -2457 1675 Weight 129.2 kg 129.3 kg General appearance: PRESENT: no acute distress, well-developed, well-nourished Head exam: PRESENT: atraumatic, normocephalic Eye exam: PRESENT: conjunctiva pink, EOMI, PERRLA. ABSENT: scleral icterus Ear exam: PRESENT: normal external ear exam Mouth exam: PRESENT: moist, tongue midline Neck exam: ABSENT: carotid bruit, JVD, lymphadenopathy, thyromegaly Respiratory exam: PRESENT: clear to auscultation nayeli. ABSENT: rales, rhonchi, wheezes Cardiovascular exam: PRESENT: RRR. ABSENT: diastolic murmur, rubs, systolic murmur Pulses: PRESENT: normal dorsalis pedis pul Vascular exam: PRESENT: normal capillary refill GI/Abdominal exam: PRESENT: normal bowel sounds, soft. ABSENT: distended, guarding, mass, organolmegaly, rebound, tenderness Rectal exam: PRESENT: deferred Extremities exam: PRESENT: full ROM. ABSENT: calf tenderness, clubbing, pedal edema Neurological exam: PRESENT: alert, awake, oriented to person, oriented to place, oriented to time, oriented to situation, CN II-XII grossly intact. ABSENT: motor sensory deficit Psychiatric exam: PRESENT: appropriate affect, normal mood. ABSENT: homicidal ideation, suicidal ideation Skin exam: PRESENT: dry, intact, warm. ABSENT: cyanosis, rash Results Laboratory Results: 07/25/19 04:27 07/25/19 04:27 07/21/19 16:30 Blood Blood Culture - Final NO GROWTH IN 5 DAYS 07/21/19 15:23 Blood Blood Culture - Final NO GROWTH IN 5 DAYS 07/21/19 07/21/19 15:23 15:23 Creatine Kinase 94 CK-MB (CK-2) 3.86 Troponin I 0.020 NT-Pro-B Natriuret Pep 1890 H Impressions: Head CT 07/21/19 15:16 IMPRESSION: CHRONIC CHANGES OF ATROPHY AND MICROVASCULAR ISCHEMIA. NO ACUTE PROCESS. EVIDENCE OF ACUTE STROKE: NO. Chest X-Ray 07/25/19 05:00 IMPRESSION: Interval extubation. Assessment and Plan - Diagnosis (1) Acute hypercapnic respiratory failure Is this a current diagnosis for this admission?: Yes (2) Acute kidney injury Is this a current diagnosis for this admission?: Yes (3) COPD exacerbation Is this a current diagnosis for this admission?: Yes Plan: Taper Prednisone (4) Elevated brain natriuretic peptide (BNP) level Is this a current diagnosis for this admission?: Yes Plan: Furosemide 40 mg IV daily. (Takes furosemide 40 mg p.o. daily at home) 2D echo (07/22/2019): LVEF 55-60%. Grade 2 diastolic dysfunction. RV size within normal limits. Mild mitral and aortic regurgitation. LA mildly dilated. - Inpatient Certification Based on my medical assessment, after consideration of the patient's comorbidities, presenting symptoms, or acuity I expect that the services needed warrant INPATIENT care.: Yes
[2019-07-26] MEDS: ATORVASTATIN CALCIUM 80 MG TABLET PO SCH (21:40)
[2019-07-26] MEDS: AZITHROMYCIN 500 MG in DEXTROSE 5%-WATER 250 ML IV SCH (21:41)
[2019-07-26] MEDS ORDERED: DOXAZOSIN MESYLATE 4 MG TABLET PO SCH (22:00)
[2019-07-27] MEDS: INSULIN REG, HUMAN 100 UNIT/ML 3 ML VIAL (PYX) SUBCUT SCH ×3 (01:18→12:45)
[2019-07-27] MEDS: HEPARIN SOD (PORCINE) 5,000 UNIT/ML 1 ML VIAL SUBCUT SCH (06:47)
[2019-07-27] MEDS: FINASTERIDE 5 MG TABLET PO SCH (10:14)
[2019-07-27] MEDS: ASPIRIN 81 MG TABLET, ENT COATED PO SCH (10:15)
[2019-07-27] MEDS: PREDNISONE 20 MG TABLET PO SCH (10:15)
[2019-07-27] MEDS: GLIPIZIDE XL 5 MG TAB.ER.24 PO SCH (10:16)
[2019-07-27] MEDS: GABAPENTIN 300 MG CAPSULE PO SCH (10:16)
[2019-07-27] MEDS: IBUPROFEN 800 MG TABLET PO SCH (10:16)
[2019-07-27] MEDS: DIPHENHYDRAMINE HCL 50 MG CAPSULE PO SCH (10:16)
[2019-07-27] MEDS: METOPROLOL SUCCINATE 50 MG TAB.SR.24H PO SCH (10:17)
[2019-07-27] MEDS: LISINOPRIL 10 MG TABLET PO SCH (10:18)
[2019-07-27] MEDS: CEFTRIAXONE 1 GM/D5W RTU 1 GM/50 ML RTUPB IV SCH (10:23)
[2019-07-27] MEDS: FUROSEMIDE 40 MG TABLET PO SCH (10:23)
[2019-07-27] MEDS: INSULIN GLARGINE,HUM.REC.ANLOG 1,000 UNIT/10 ML VIAL SUBCUT SCH (10:25)
[2019-07-27] MEDS: FLUTICASONE/VILANTEROL 200-25 MCG/DOSE IH SCH (11:22)
--- NOTE | 2019-07-27 12:01 | PDOC DISCHARGE SUMMARY ---
Impression - Admit/DC Date/PCP Admission Date/Primary Care Provider: 07/21/19 20:28 JORGE ZAVALA MD Discharge Date: 07/27/19 - Discharge Diagnosis (1) Acute hypercapnic respiratory failure Is this a current diagnosis for this admission?: Yes (2) Acute kidney injury Is this a current diagnosis for this admission?: Yes (3) COPD exacerbation Is this a current diagnosis for this admission?: Yes (4) Elevated brain natriuretic peptide (BNP) level Is this a current diagnosis for this admission?: Yes - Additional Information Resuscitation Status: Full Code Discharge Diet: Diabetic Discharge Activity: Activity As Tolerated Referrals: JORGE ZAVALA MD [Primary Care Provider] - Follow up as needed Prescriptions: Cefuroxime Axetil [Ceftin 250 mg Tablet] 2 tab PO BID #6 tablet Prednisone [Deltasone 20 mg Tablet] 40 mg PO DAILY #6 tablet Home Medications: Albuterol Sulfate [Albuterol Sulfate Hfa] 2 puff IH Q8HP PRN 07/21/19 Aspirin [Ecotrin 81 mg EC Tablet] 81 mg PO DAILY 07/21/19 Atorvastatin Calcium [Lipitor 80 mg Tablet] 80 mg PO QHS 07/21/19 Diphenhydramine HCl [Benadryl 50 mg Capsule] 50 mg PO BID 07/21/19 Doxazosin Mesylate [Cardura 4 mg Tablet] 4 mg PO DAILY 07/21/19 Finasteride [Proscar 5 mg Tablet] 5 mg PO DAILY 07/21/19 Fluticasone/Salmeterol [Advair 250-50 Diskus 14 Dose/Diskus] 1 puff IH BID 07/21/19 Furosemide [Lasix 40 mg Tablet] 40 mg PO DAILY 07/21/19 Gabapentin 600 mg PO BID 07/21/19 Glipizide [Glipizide Xl] 10 mg PO BID 07/21/19 Ibuprofen [Motrin 800 mg Tablet] 800 mg PO BID 07/21/19 Insulin Glargine,Hum.rec.anlog [Lantus Insulin 100 Unit/mL Insulin Pen] 50 unit SUBCUT QAM 07/21/19 Lisinopril [Prinivil 10 mg Tablet] 10 mg PO DAILY 07/21/19 Metoprolol Succinate [Toprol Xl 50 mg Tab.sr] 50 mg PO DAILY 07/21/19 Sitagliptin Phos/Metformin HCl [Janumet Xr 50-1,000 mg Tablet] 1 tab PO BID 07/21/19 Cefuroxime Axetil [Ceftin 250 mg Tablet] 2 tab PO BID #6 tablet 07/27/19 Prednisone [Deltasone 20 mg Tablet] 40 mg PO DAILY #6 tablet 07/27/19 History of Present Illiness History of Present Illness: SHARRI SINGER is a 79 year old male This patient was admitted with difficulty breathing and change in mental status. He was found to be hypothermic and hypotensive. He was placed on BiPAP and however he remained acidotic and hypercapnic and so he was subsequently intubated in the emergency room. Please see admitting history and physical as well as for full details. Hospital Course Hospital Course: He was admitted to the intensive care unit with acute hypercapnic respiratory failure as well as COPD exacerbation. He was ultimately successfully extubated. He was also found to have a community-acquired pneumonia and was treated with intravenous antibiotics through discharge and will complete a 10-day course of antibiotics. He is initial hypokalemia as well as acute kidney injury have resolved. COVID-19 was also ruled out. Patient was moved out of the intensive care unit after successful extubation on July 24 and he has remained hemodynamically stable. He does have some weakness from his acute illness however patient appears to be recovering well and at this point as he has remained hemodynamically stable he is being discharged home to complete his recuperation. He will benefit from home health nursing and age on discharge home Physical Exam Vital Signs: Temp Pulse Resp BP Pulse Ox 97.9 F 58 L 12 147/52 H 97 07/27/19 06:36 07/27/19 07:00 07/27/19 06:36 07/27/19 06:36 07/27/19 06:36 Intake & Output 07/26/19 07/27/19 07/28/19 06:59 06:59 06:59 Intake Total 2350 1266 Output Total 425 900 Balance 1925 366 Weight 129.3 kg 129.3 kg General appearance: PRESENT: no acute distress, cooperative, well-developed, other - Elderly gentleman Head exam: PRESENT: atraumatic, normocephalic Eye exam: PRESENT: conjunctiva pink, PERRLA. ABSENT: scleral icterus Ear exam: PRESENT: normal external ear exam Mouth exam: PRESENT: tongue midline Neck exam: ABSENT: carotid bruit, JVD, lymphadenopathy, thyromegaly Respiratory exam: PRESENT: clear to auscultation nayeli. ABSENT: rales, rhonchi, wheezes Cardiovascular exam: PRESENT: RRR, +S1, +S2. ABSENT: diastolic murmur, rubs, systolic murmur Pulses: PRESENT: normal dorsalis pedis pul Vascular exam: PRESENT: normal capillary refill GI/Abdominal exam: PRESENT: normal bowel sounds, soft. ABSENT: distended, guarding, mass, organolmegaly, rebound, tenderness Rectal exam: PRESENT: deferred Extremities exam: PRESENT: full ROM. ABSENT: calf tenderness, clubbing, pedal edema Neurological exam: PRESENT: alert, awake, oriented to person, oriented to place, oriented to time, oriented to situation, CN II-XII grossly intact. ABSENT: motor sensory deficit Psychiatric exam: PRESENT: appropriate affect, normal mood. ABSENT: homicidal ideation, suicidal ideation Skin exam: PRESENT: dry, intact, warm. ABSENT: cyanosis, rash Results Laboratory Results: WBC 10.4 10^3/uL (4.0-10.5) 07/25/19 04:27 RBC 4.31 10^6/uL (4.35-5.55) L 07/25/19 04:27 Hgb 13.2 g/dL (13.5-17.0) L 07/25/19 04:27 Hct 40.9 % (37.9-51.0) 07/25/19 04:27 MCV 95 fl (80-97) 07/25/19 04:27 MCH 30.5 pg (27.0-33.4) 07/25/19 04:27 MCHC 32.2 g/dL (32.0-36.0) 07/25/19 04:27 RDW 13.6 % (11.5-14.0) 07/25/19 04:27 Plt Count 176 10^3/uL (150-450) 07/25/19 04:27 Lymph % (Auto) Not Reportable 07/25/19 04:27 Grant % (Auto) Not Reportable 07/25/19 04:27 Eos % (Auto) Not Reportable 07/25/19 04:27 Baso % (Auto) Not Reportable 07/25/19 04:27 Absolute Neuts (auto) Not Reportable 07/25/19 04:27 Absolute Lymphs (auto) Not Reportable 07/25/19 04:27 Absolute Monos (auto) Not Reportable 07/25/19 04:27 Absolute Eos (auto) Not Reportable 07/25/19 04:27 Absolute Basos (auto) Not Reportable 07/25/19 04:27 Total Counted 100 07/25/19 04:27 Seg Neutrophils % Not Reportable 07/25/19 04:27 Seg Neuts % (Manual) 91 % (42-78) H 07/25/19 04:27 Lymphocytes % (Manual) 4 % (13-45) L 07/25/19 04:27 Atypical Lymphs % 3 % (0) 07/22/19 03:35 Monocytes % (Manual) 5 % (3-13) 07/25/19 04:27 Eosinophils % (Manual) 0 % (0-6) 07/25/19 04:27 Basophils % (Manual) 0 % (0-2) 07/25/19 04:27 Abs Neuts (Manual) 9.5 10^3/uL (1.7-8.2) H 07/25/19 04:27 Abs Lymphs (Manual) 0.4 10^3/uL (0.5-4.7) L 07/25/19 04:27 Abs Monocytes (Manual) 0.5 10^3/uL (0.1-1.4) 07/25/19 04:27 Absolute Eos (Manual) 0.0 10^3/uL (0.0-0.6) 07/25/19 04:27 Abs Basophils (Manual) 0.0 10^3/uL (0.0-0.2) 07/25/19 04:27 Toxic Granulation SLIGHT 07/22/19 03:35 Platelet Estimate Cancelled 07/22/19 02:50 Platelet Comment ADEQUATE 07/25/19 04:27 Poikilocytosis 1+ 07/24/19 08:09 Ovalocytes 1+ 07/24/19 08:09 RBC Morph Comment NORMO-CYTIC/CHROMIC 07/25/19 04:27 PT 13.2 SEC (11.4-15.4) 07/21/19 15:26 INR 1.00 07/21/19 15:26 APTT 31.1 SEC (23.5-35.8) 07/21/19 15:26 Carbonic Acid 1.57 mmol/L (1.05-1.35) H 07/24/19 13:50 HCO3/H2CO3 Ratio 20:1 07/24/19 13:50 ABG pH 7.41 (7.35-7.45) 07/24/19 13:50 ABG pCO2 52.3 mmHg (35-45) H 07/24/19 13:50 ABG pO2 59.3 mmHg (80-100) L 07/24/19 13:50 ABG HCO3 32.5 mmol/L (20-24) H 07/24/19 13:50 ABG Total CO2 34.1 mmol/L (23-27) H 07/24/19 13:50 ABG O2 Saturation 90.6 % (94-98) L 07/24/19 13:50 ABG Base Excess 6.5 mmol/L 07/24/19 13:50 FiO2 40% 07/24/19 13:50 Sodium 143.5 mmol/L (137-145) 07/25/19 04:27 Potassium 4.5 mmol/L (3.6-5.0) 07/25/19 04:27 Chloride 101 mmol/L (98-107) 07/25/19 04:27 Carbon Dioxide 34 mmol/L (22-30) H 07/25/19 04:27 Anion Gap 9 (5-19) 07/25/19 04:27 BUN 57 mg/dL (7-20) H 07/25/19 04:27 Creatinine 0.99 mg/dL (0.52-1.25) 07/25/19 04:27 Est GFR ( Amer) > 60 (>60) 07/25/19 04:27 Est GFR (MDRD) Non-Af > 60 (>60) 07/25/19 04:27 Glucose 258 mg/dL (75-110) H 07/25/19 04:27 POC Glucose 99 mg/dL (70-110) 07/27/19 07:03 Lactic Acid 0.6 mmol/L (0.7-2.1) L 07/22/19 02:50 Calcium 8.7 mg/dL (8.4-10.2) 07/25/19 04:27 Phosphorus 4.7 mg/dL (2.5-4.5) H 07/25/19 04:27 Magnesium 2.1 mg/dL (1.6-2.3) 07/25/19 04:27 Total Bilirubin 0.7 mg/dL (0.2-1.3) 07/25/19 04:27 Direct Bilirubin 0.0 mg/dL (0.0-0.4) 07/25/19 04:27 Neonat Total Bilirubin Not Reportable 07/25/19 04:27 Neonat Direct Bilirubin Not Reportable 07/25/19 04:27 Neonat Indirect Bili Not Reportable 07/25/19 04:27 AST 37 U/L (17-59) 07/25/19 04:27 ALT 23 U/L (<50) 07/25/19 04:27 Alkaline Phosphatase 97 U/L (38-126) 07/25/19 04:27 Creatine Kinase 94 U/L (55-170) 07/21/19 15:23 CK-MB (CK-2) 3.86 ng/mL (<4.55) 07/21/19 15:23 Troponin I 0.020 ng/mL 07/21/19 15:23 NT-Pro-B Natriuret Pep 1890 pg/mL (<450) H 07/21/19 15:23 Total Protein 6.4 g/dL (6.3-8.2) 07/25/19 04:27 Albumin 3.9 g/dL (3.5-5.0) 07/25/19 04:27 Prealbumin 22.2 mg/dL (17.6-36.0) 07/25/19 04:27 Urine Color YELLOW 07/21/19 15:55 Urine Appearance SLIGHTLY-CLOUDY 07/21/19 15:55 Urine pH 5.0 (5.0-9.0) 07/21/19 15:55 Ur Specific [place] 1.016 07/21/19 15:55 Urine Protein 30 mg/dL (NEGATIVE) H 07/21/19 15:55 Urine Glucose (UA) NEGATIVE mg/dL (NEGATIVE) 07/21/19 15:55 Urine Ketones NEGATIVE mg/dL (NEGATIVE) 07/21/19 15:55 Urine Blood NEGATIVE (NEGATIVE) 07/21/19 15:55 Urine Nitrite NEGATIVE (NEGATIVE) 07/21/19 15:55 Urine Bilirubin NEGATIVE (NEGATIVE) 07/21/19 15:55 Urine Urobilinogen NEGATIVE mg/dL (<2.0) 07/21/19 15:55 Ur Leukocyte Esterase NEGATIVE (NEGATIVE) 07/21/19 15:55 Urine WBC (Auto) 5 /HPF 07/21/19 15:55 Urine RBC (Auto) 1 /HPF 07/21/19 15:55 U Hyaline Cast (Auto) 16 /LPF 07/21/19 15:55 Squamous Epi Cells Auto <1 /HPF 07/21/19 15:55 Urine Mucus (Auto) RARE /LPF 07/21/19 15:55 Urine Ascorbic Acid NEGATIVE (NEGATIVE) 07/21/19 15:55 Gastric Occult Blood NEGATIVE (NEGATIVE) 07/22/19 17:44 Urine Opiates Screen NEGATIVE 07/21/19 15:55 Urine Methadone Screen NEGATIVE 07/21/19 15:55 Ur Barbiturates Screen NEGATIVE 07/21/19 15:55 Ur Phencyclidine Scrn NEGATIVE 07/21/19 15:55 Ur Amphetamines Screen NEGATIVE 07/21/19 15:55 U Benzodiazepines Scrn NEGATIVE 07/21/19 15:55 Urine Cocaine Screen NEGATIVE 07/21/19 15:55 U Marijuana (THC) Screen NEGATIVE 07/21/19 15:55 COVID-19 Source Cancelled 07/21/19 18:47 COVID-19 (JACQUE) Cancelled 07/21/19 18:47 SARS-CoV-2 (PCR) NEGATIVE (NEGATIVE) 07/21/19 18:47 Slides for Path Review Cancelled 07/22/19 02:50 07/21/19 15:23 CK-MB (CK-2) 3.86 Troponin I 0.020 NT-Pro-B Natriuret Pep 1890 H Impressions: Chest X-Ray 07/21/19 00:00 IMPRESSION: Possible right lower lobe pneumonia. Cardiomegaly with possible mild pulmonary vascular congestion. The ET and NG tubes are in satisfactory position. copyright 2011 [employer]- All Rights Reserved Chest X-Ray 07/21/19 15:16 IMPRESSION: Hypoventilatory changes. Head CT 07/21/19 15:16 IMPRESSION: CHRONIC CHANGES OF ATROPHY AND MICROVASCULAR ISCHEMIA. NO ACUTE PROCESS. EVIDENCE OF ACUTE STROKE: NO. Chest X-Ray 07/23/19 05:00 IMPRESSION: Resolving bilateral areas of atelectasis and/or pneumonia. Chest X-Ray 07/25/19 05:00 IMPRESSION: Interval extubation. Plan Time Spent: Greater than 30 Minutes Stroke Is this a Stroke Patient?: No Acute Heart Failure - Is this a Heart Failure Patient?: No
[2019-07-27 13:59] VITALS: BP 186/67
== END 2019-07-27 14:25 | disposition home health service (06) | DRG 208 ==
LOC: ER 15:14 → EH 20:28 → ICU 21:32 → 4S 07-25 16:02
PROVIDERS: ADMIT Internal Medicine Critical Care Medicine; ATTEND Internal Medicine
PROC: 5A1945Z Respiratory Ventilation, 24-96 Consecutive Hours (ICD-10-PCS; principal; 2019-07-21)
PROC: 0BH17EZ Insertion of Endotracheal Airway into Trachea, Via Natural or Artificial Opening (ICD-10-PCS; 2019-07-21)
DX: J96.02 Acute respiratory failure with hypercapnia (principal); J18.9 Pneumonia, unspecified organism; J44.1 Chronic obstructive pulmonary disease with (acute) exacerbation; N17.9 Acute kidney failure, unspecified; J44.0 Chronic obstructive pulmonary disease with (acute) lower respiratory infection; E87.6 Hypokalemia; K44.9 Diaphragmatic hernia without obstruction or gangrene; E87.5 Hyperkalemia; D50.9 Iron deficiency anemia, unspecified; E66.01 Morbid (severe) obesity due to excess calories; N18.9 Chronic kidney disease, unspecified; R79.89 Other specified abnormal findings of blood chemistry; I95.9 Hypotension, unspecified; I44.0 Atrioventricular block, first degree; R40.2431 Glasgow coma scale score 3-8, in the field [EMT or ambulance]; I25.2 Old myocardial infarction; I08.0 Rheumatic disorders of both mitral and aortic valves; E09.9 Drug or chemical induced diabetes mellitus without complications; Z03.818 Encounter for observation for suspected exposure to other biological agents ruled out; Z78.1 Physical restraint status; Z79.899 Other long term (current) drug therapy; Z79.4 Long term (current) use of insulin; Z79.82 Long term (current) use of aspirin
CPT/HCPCS: 36415; 36600; 70450; 71045; 80048; 80053; 80307; 81001; 82271; 82550; 82553; 82803; 82962; 83605; 83735; 83880; 84100; 84132; 84134; 84484; 85025; 85610; 85730; 87040; 87070; 87205; 87635; 93005; 93010; 93306; 94002; 94003; 94640; 94667; 94668; 94799; 96360; 99221; 99291; C9113; J0330; J0456; J0610; J0696; J1644; J1815; J1940; J2250; J2270; J2704; J2930; J3010; J3490; J7030; J7060; J7512; J7620

== ENCOUNTER → 2019-11-07 | Outpatient (CLI) | payer MEDICARE, OTHER ==
[2019-11-07 09:19] LABS: ABSOLUTE EOSINOPHILS # (AUTO) 0.2 10^3/uL (0.0-0.6); ABSOLUTE MONOCYTES (AUTO) 0.4 10^3/uL (0.1-1.4); ABSOLUTE NEUT (AUTO) 3.8 10^3/uL (1.7-8.2); BASOPHILS % (AUTO) 0.8 % (0-2); EOSINOPHILS % (AUTO) 2.8 % (0-6); HEMATOCRIT 31.7 % (37.9-51.0); HEMOGLOBIN 10.9 g/dL (13.5-17.0); LYMPHOCYTES % (AUTO) 19.3 % (13-45); MEAN CORPUSCULAR HEMOGLOBIN 31.9 pg (27.0-33.4); MEAN CORPUSCULAR HGB CONC 34.3 g/dL (32.0-36.0); MEAN CORPUSCULAR VOLUME 93 fl (80-97); MONOCYTES % (AUTO) 7.4 % (3-13); PLATELET COUNT 187 10^3/uL (150-450); RED BLOOD COUNT 3.41 10^6/uL (4.35-5.55); RED CELL DISTRIBUTION WIDTH 13.9 % (11.5-14.0); SEGMENTED NEUTROPHILS % (AUTO) 69.7 % (42-78); TOTAL CELLS COUNTED % (AUTO) 100 %; WHITE BLOOD COUNT 5.4 10^3/uL (4.0-10.5)
[2019-11-07 10:07] LABS: ALBUMIN 3.9 g/dL (3.5-5.0); ALKALINE PHOSPHATASE 94 U/L (38-126); ANION GAP 9 (5-19); ASPARTATE AMINO TRANSFERASE 20 U/L (17-59); BILIRUBIN,DIRECT 0.3 mg/dL (0.0-0.4); BILIRUBIN,TOTAL 0.5 mg/dL (0.2-1.3); BLOOD UREA NITROGEN 49 mg/dL (7-20); CARBON DIOXIDE 25 mmol/L (22-30); CHLORIDE 110 mmol/L (98-107); GLUCOSE 82 mg/dL (75-110); POTASSIUM 4.8 mmol/L (3.6-5.0); TOTAL PROTEIN 6.6 g/dL (6.3-8.2); TRIGLYCERIDES 155 mg/dL (<150)
[2019-11-07 10:19] LABS: DIRECT LDL < 30 mg/dL (<100)
== END ==
LOC: OD 08:36
PROVIDERS: ATTEND Internal Medicine
DX: I10 Essential (primary) hypertension (principal); E11.9 Type 2 diabetes mellitus without complications; I25.10 Atherosclerotic heart disease of native coronary artery without angina pectoris; E78.00 Pure hypercholesterolemia, unspecified; Z79.899 Other long term (current) drug therapy
CPT/HCPCS: 36415; 80053; 80061; 85025